=== PATIENT | female | born 1960 | race Caucasian/White ===

== ENCOUNTER 2019-10-18 12:48 | Outpatient (CLI) | payer SELFPAY ==
--- NOTE | 2019-10-18 13:07 | XR_ITS ---
WS: [id number] Right foot, 3 views, 10/18/2019 Clinical Data: PAIN IN R FOOT Comparison: None. Findings: No fractures or dislocations are seen. No bone destruction or erosion is noted. The joint spaces and soft tissues are normal. XR/XR foot RT min 3V* [id number] Impression: Negative right foot.
--- NOTE | 2019-10-18 13:07 | XR_ITS ---
WS: [id number] Left foot, 3 views, 10/18/2019 Clinical Data: PAIN IN L FOOT Comparison: None. Findings: No fractures or dislocations are seen. No bone destruction or erosion is noted. The joint spaces and soft tissues are normal. XR/XR foot LT min 3V* [id number] Impression: Negative left foot.
== END 2019-10-18 12:49 | disposition home or self-care (01) ==
LOC: RAD 12:51
PROVIDERS: PCP Internal Medicine; Visit Provider Internal Medicine
DX: M79.672 Pain in left foot (principal); M79.671 Pain in right foot
CPT/HCPCS: 73630

== ENCOUNTER 2019-10-30 07:33 | Outpatient (CLI) | payer SELFPAY ==
--- NOTE | 2019-10-30 07:38 | US_ITS ---
WS: [id number] ULTRASOUND RENAL TECHNIQUE: Ultrasound examination of both kidneys. CLINICAL INFORMATION: CHRONIC KIDNEY DISEASE COMPARISON: None. FINDINGS: RIGHT: Right kidney is normal in size and appearance. Echogenicity: Normal. Cortical thickness: 1.4 cm; Normal. Hydronephrosis: None. Perinephric fluid: None. Right kidney measures: 9.4 cm x 3.5 cm x 4.0 cm. LEFT: Left kidney is normal in size and appearance. Echogenicity: Normal. Cortical thickness: 1.1 cm; Normal. Hydronephrosis: None. Perinephric fluid: None. Left kidney measures: 9.8 cm x 3.7 cm x 4.3 cm. Normal bladder. Moderate atheromatous plaque in the abdominal aorta. Suggestion of some mobile plaque . Peripheral mural thrombus. US/US renal BI* [id number] IMPRESSION: 1. Both kidneys are normal in appearance. No hydronephrosis. 2. Moderate atheromatous disease abdominal aorta with some mobile plaque. Per ipheral mural thrombus. This can be further evaluated with CTA.
== END 2019-10-30 07:34 | disposition home or self-care (01) ==
LOC: US 07:35
PROVIDERS: PCP Internal Medicine; Visit Provider Internal Medicine
DX: N18.2 Chronic kidney disease, stage 2 (mild) (principal); I70.0 Atherosclerosis of aorta
CPT/HCPCS: 76770

== ENCOUNTER 2019-10-31 08:02 | Outpatient (CLI) | payer SELFPAY ==
--- NOTE | 2019-10-31 08:25 | CT_ITS ---
WS: [id number] CT ABDOMEN NON-CONTRAST PLUS CONTRAST TECHNIQUE: Noncontrast CT of the abdomen and contrast-enhanced CT of the abdomen with coronal and sag ittal reformatted images. CLINICAL INFORMATION: ADRENAL ADENOMA COMPARISON: Ultrasound October 30, 2019 DLP: 2152.[address] scans at [facility] use at least one of these dose optimization techniques: automat ed exposure control; mA and/or kV adjustment per patient size (includes targeted exams where dose is matched to clinical indication); or iterative reconstruction. FINDINGS: Mild diffuse fatty infiltration of the liver. Portal vein and splenic vein are patent. Normal gallbla dder. Normal GE junction. Normal spleen. Lung bases are well aerated. Normal bilateral renal parenchymal enhancement. Small bilateral renal cysts. Small right adrenal srikanth funmilayo measuring 7 mm. Slight thickening left adrenal gland with no well-circumscribed adenoma. No other adrenal lesions. Both ureters are decompressed. No hydronephrosis. No upper abdominal lymphadenopathy. Tiny fat-contai jason umbilical hernia. Mild fatty atrophy of the pancreas. Normal caliber abdominal aorta. No signifi cant calcified aortic atheromatous disease. Mild calcified atheromatous disease left common iliac art basilio. CT/CT abdomen wo/w con [id number] IMPRESSION: 1. Tiny 6 mm right adrenal adenoma. 2. Slight thickening left adrenal gland. No well-circumscribed adenoma. 3. Normal bilateral renal parenchymal enhancement. No hydronephrosis. Small bi lateral renal cysts. 4. Mild diffuse fatty infiltration of the liver. 5. Normal caliber abdominal aorta. No significant calcified aortic atheromatou s disease. Slight calcified atheromatous disease along the left common iliac ar marcelo. 6. Tiny fat-containing umbilical hernia.
[2019-10-31] MEDS: iohexol 300 mg/mL 100 mL Btl IV (08:55)
== END 2019-10-31 08:03 | disposition home or self-care (01) ==
LOC: RADWPI 08:03
PROVIDERS: PCP Internal Medicine; Visit Provider Internal Medicine
DX: D35.00 Benign neoplasm of unspecified adrenal gland (principal); Q61.02 Congenital multiple renal cysts; K76.0 Fatty (change of) liver, not elsewhere classified; K42.9 Umbilical hernia without obstruction or gangrene
CPT/HCPCS: 74170; Q9967

== ENCOUNTER 2019-11-23 14:31 | Outpatient (CLI) | payer SELFPAY ==
--- NOTE | 2019-11-23 14:33 | MM_ITS ---
WS: [id number] BILATERAL DIGITAL SCREENING MAMMOGRAPHY WITH CAD CLINICAL INFORMATION: SCREENING HISTORY: Screening mammogram. No current complaints. COMPARISON: June 22, 2011 TECHNIQUE: Bilateral CC and MLO views. FINDINGS: The breasts are composed of heterogeneous fibroglandular density tissue, which can limit the detectio n of small underlying mass lesions. Lucent centered calcifications. Slightly spiculated 9 mm asymmetr ic density upper outer right breast near the 12:00 position. Recommend spot compression views and ult rasound for further evaluation. This is new since 2010. No suspicious abnormalities left breast. MM/[place] [id number] IMPRESSION: BI-RADS: 0-Incomplete: Need additional imaging evaluation FOLLOW UP: Need Additional Imaging
== END 2019-11-23 14:32 | disposition home or self-care (01) ==
LOC: RADSHAW 14:31
PROVIDERS: PCP Internal Medicine; Visit Provider Internal Medicine
DX: Z12.31 Encounter for screening mammogram for malignant neoplasm of breast (principal)
CPT/HCPCS: 77067

== ENCOUNTER → 2019-12-19 09:05 | Outpatient (BNVA) | payer SELFPAY | PROVIDERS: PCP Internal Medicine; Visit Provider Podiatrist Foot & Ankle Surgery | DX: M25.571 Pain in right ankle and joints of right foot (principal) | CPT/HCPCS: 73610 ==

== ENCOUNTER 2019-12-21 11:11 | Outpatient (CLI) | payer SELFPAY ==
--- NOTE | 2019-12-21 11:58 | MM_ITS ---
WS: [id number] RIGHT DIGITAL MAMMOGRAPHY WITH CAD CLINICAL INFORMATION: RIGHT BREAST LESION COMPARISON: November 23, 2019 TECHNIQUE: 4 views of the right breast were obtained. FINDINGS: The right breast is composed of heterogeneous fibroglandular density tissue, which can limit the dete ction of small underlying mass lesions. Lucent centered calcifications. Vascular calcification. Slightly spiculated 7 mm asymmetric density upper outer right breast not as well-defined on the spot compression views today but appears persistent. Ultrasound is pending. . ULTRASOUND BREAST RIGHT TECHNIQUE: Ultrasound right breast focused area of concern. CLINICAL INFORMATION: RIGHT BREAST LESION COMPARISON: None. FINDINGS: Evidence of fibrocystic change with multiple subcentimeter cysts and dilated ducts. At the 1:00 posit ion is a heterogeneous hypoechoic lesion that is not definitely cystic. Internal echogenicity. Recomm end further evaluation with ultrasound-guided biopsy. This lesion measures approximately 4.9 x 4.0 x 2.9 mm. MM/[place] [id number] IMPRESSION: BI-RADS: 4B-Suspicious: Intermediate FOLLOW UP: US Guided Biopsy Recommended
--- NOTE | 2019-12-21 12:01 | US_ITS ---
WS: [id number] RIGHT DIGITAL MAMMOGRAPHY WITH CAD CLINICAL INFORMATION: RIGHT BREAST LESION COMPARISON: November 23, 2019 TECHNIQUE: 4 views of the right breast were obtained. FINDINGS: The right breast is composed of heterogeneous fibroglandular density tissue, which can limit the dete ction of small underlying mass lesions. Lucent centered calcifications. Vascular calcification. Slightly spiculated 7 mm asymmetric density upper outer right breast not as well-defined on the spot compression views today but appears persistent. Ultrasound is pending. . ULTRASOUND BREAST RIGHT TECHNIQUE: Ultrasound right breast focused area of concern. CLINICAL INFORMATION: RIGHT BREAST LESION COMPARISON: None. FINDINGS: Evidence of fibrocystic change with multiple subcentimeter cysts and dilated ducts. At the 1:00 posit ion is a heterogeneous hypoechoic lesion that is not definitely cystic. Internal echogenicity. Recomm end further evaluation with ultrasound-guided biopsy. This lesion measures approximately 4.9 x 4.0 x 2.9 mm. US/US breast RT limited* [id number] IMPRESSION: BI-RADS: 4B-Suspicious: Intermediate FOLLOW UP: US Guided Biopsy Recommended
== END 2019-12-21 11:12 | disposition home or self-care (01) ==
LOC: RADSHAW 11:11
PROVIDERS: PCP Internal Medicine; Visit Provider Internal Medicine
DX: R92.8 Other abnormal and inconclusive findings on diagnostic imaging of breast (principal); N63.10 Unspecified lump in the right breast, unspecified quadrant
CPT/HCPCS: 76642; 77065

== ENCOUNTER 2020-01-01 11:45 | Outpatient (CLI) | payer SELFPAY ==
--- NOTE | 2020-01-01 12:21 | US_ITS ---
WS: [id number] ULTRASOUND-GUIDED RIGHT BREAST BIOPSY HISTORY: ABNORMAL MAMMOGRAM COMPARISON: 12/21/2019 Procedure, risks and complications are explained to the patient. Medications are reviewed. Consent is obtained. The mass in the RIGHT breast is localized with ultrasound. Skin is cleansed with ChloraPrep and anest hetized with 1% buffered lidocaine. Small dermatome is made. Under sterile conditions mass is biopsie d with a 14-gauge Achieve needle. Multiple core biopsies are performed. Material placed in formalin a nd sent to pathology for review. No complications encountered. Breast tissue marker (Bard ultrasound enhanced ribbon): Single. Patient left the radiology suite with no complications. Patient is instructed to return [place] [facility] [place] [facility] with any concerns. 1. Uncomplicated core needle biopsy RIGHT breast, 1:00. US/[place] [id number] IMPRESSION: PATHOLOGY: Benign breast parenchyma with fibrocystic changes. Cystic and papill roxana apocrine metaplasia and focal columnar cell change. No atypia or malignancy . RECOMMENDATION: Return to annual screening mammography. Mammography and patholo gical findings are concordant.
== END 2020-01-01 11:46 | disposition home or self-care (01) ==
LOC: RAD 12:12
PROVIDERS: PCP Internal Medicine; Visit Provider Internal Medicine
DX: R92.8 Other abnormal and inconclusive findings on diagnostic imaging of breast (principal); N60.81 Other benign mammary dysplasias of right breast
CPT/HCPCS: 19083; 88305

== ENCOUNTER 2021-03-24 08:37 | Emergency (ER) | payer MEDICAID, SELFPAY ==
[2021-03-24 08:47] VITALS: BP 143/85; PULSE 74; RESP 15; TEMP 36.6; O2SAT 97; BMI 24.2
--- NOTE | 2021-03-24 08:59 | CT_ITS ---
WS: [id number] CT ABDOMEN AND PELVIS WITH AND WITHOUT CONTRAST HISTORY: pain, hx of adrenal cyst TECHNIQUE: Unenhanced 5 mm axial imaging first performed through the abdomen. Post contrast imaging t hrough the abdomen and pelvis. Oral contrast has not been provided. Sagittal and coronal reformats a re submitted. All CT scans at [facility] use at least one of these dose optimization tech niques: automated exposure control; mA and/or kV adjustment per patient size (includes targeted exams where dose is matched to clinical indication); or iterative reconstruction. CONTRAST: Omnipaque 300; 95 mL IV. DLP: 4417.65 mGy.cm COMPARISON: 10/31/2019 Dependent changes at the lung bases. Subsolid nodule at the RIGHT lung base is unchanged since 020. Mild enlargement of the heart. Small hiatal hernia. Gallbladder is very slightly hydropic with mild wall thickening. There is a stone at the neck of the gallbladder which may be entrapped. This calcification measures 2 cm in diameter. There is a moderate amount of inflammation and wall thickening surrounding the gallbladder. There is some very mild hype remia in the liver adjacent to the gallbladder fundus. No bile duct dilatation. Normal portal vein. Normal pancreas. 6 mm nodule in the RIGHT adrenal gland is probably an adenoma and stable. No adrena l mass. Hypodensities in each kidney. No solid mass. These hypodensities are too small to characteriz e. There is no obstruction. Pancreas is normal. Normal aorta. No free fluid or adenopathy. The appendix is normal. No GI tract obstruction. There are numerous dive rticula in the sigmoid colon without inflammation. No destructive osseous process. Mild disc space narrowing at L5-S1. CT/CT abdomen pelvis wo/w [id number] IMPRESSION: 1. Acute cholecystitis with mild gallbladder hydrops and pericholecystic fluid and adjacent hyperemia in the liver. 2 cm calcification entrapped at the gallb ladder neck. 2. No bile duct dilatation.
--- NOTE | 2021-03-24 09:00 | W.ED.GENADLT ---
HPI - General Adult General: Chief complaint: General Medical Stated complaint: LEFT FLANK PAIN Time Seen by Provider: 03/24/21 08:47 History of Present Illness: HPI narrative: Patient has had left flank pain for several days unrelenting. Patient says since she had a monitor and a vaccine a while back that she swelled up and the kidneys bothered her some. She does not know whether she has had any hematuria. She has had some nausea. Not any difficulty urinating. Patient states that she believes it could also be her cyst she was diagnosed with a year ago that was found 100 adrenal gland left side. Denies any other health problems Onset (ago): day(s) Location: back Severity: moderate Severity scale (1-10): 4 Quality: other (Patient will not describe the pain said it just hurts) Pain Consistency: constant Relieving factors: none Exacerbating factors: other (Walking) Associated symptoms: Reports nausea; Deny chest pain, dyspnea, headache(s) or rash Review of Systems Const: Denies: fever(s), chills or body aches Eyes: Denies: change in vision or blurry vision ENMT: Denies: throat pain or nasal congestion Card: Denies: chest pain or dyspnea on exertion Resp: Denies: dyspnea, productive cough or non-productive cough GI: Reports: nausea : Reports: flank pain Musc: Denies: extremity pain Skin/Breast: Denies: rash Neuro: Denies: headache(s) Psych: Denies: anxiety or depression Hector/Lymph: Denies: easy bruising PFSH ED PFSH: Medical History (Updated 12/23/19 @ 14:49 by Erik Grewal DPM) Diabetes mellitus High cholesterol History of skull fracture Hypertension Hypothyroid Surgical History (Updated 12/23/19 @ 14:49 by Erik Grewal DPM) History of hysterectomy Status post removal of thyroid nodule Family History (Updated 12/19/19 @ 09:17 by Berna Montelongo LPN) Other Dementia Denies family history of Cancer Social History (Updated 12/19/19 @ 09:19 by Berna Montelongo LPN) Smoking and tobacco status: never smoked Alcohol intake: never Household members: other Details: parents Current occupational status: unemployed Physical Exam Const: COMMON NORMALS: no acute distress, average body habitus and patient oriented x3 HENMT: COMMON NORMALS: normocephalic HEAD & SCALP: normal to inspection and normocephalic FACE & SINUS: normal facial exam Eye: COMMON NORMALS: conjunctivae normal GENERAL EYE: appearance normal, both eyes and all related structures CONJUNCTIVA: Yes conjunctivae normal Neck/C-Spine: COMMON NORMALS: no JVD Chest: COMMONS NORMALS: normal inspection of the chest Resp: COMMON NORMALS: normal respiratory effort and clear to auscultation bilaterally AUSCULTATION: clear to auscultation bilaterally Cardio: COMMON NORMALS: no JVD, regular rate and regular rhythm RATE: regular rate RHYTHM: regular rhythm GI: COMMON NORMALS: Normal to inspection, nondistended, normoactive bowel sounds present : BLADDER/KIDNEY EXAM: Yes CVA tenderness on the left Back/Pelvis: GENERAL BACK: Yes CVA tenderness Extremity: COMMON NORMALS: normal to inspection and full ROM Neuro: COMMON NORMALS: patient oriented x3 Course Vital Signs: Vital signs: Vital Signs Temperature 97.9 F 03/24/21 08:47 Pulse Rate 63 03/24/21 12:00 Respiratory Rate 15 03/24/21 12:00 Blood Pressure 125/96 03/24/21 12:00 Pulse Oximetry 98 03/24/21 12:00 MDM - General Adult MDM Narrative: Medical decision making narrative: I shared labs and radiology report Dr. Platt. Dr. Platt recommends patient follow-up in clinic because patient is not having acute symptoms presently has no tenderness in her abdomen. I discussed Dr. Platt conclusion with patient patient declines follow-up with surgeon says she has had gallbladder problems before and she did not want to anything about it. Patient does have mild UTI based on symptoms and UA report patient follow-up primary care provider repeat urine and clinical assessment 5 to 7 days. Lab Data: Labs: Lab Results 03/24/21 03/24/21 03/24/21 Range/Units 09:43 10:35 10:35 WBC 13.1 H (4.0-10.0) 10^3/ uL RBC 4.36 (4.1-5.3) 10^6/u L Hgb 13.2 (11.5-15.3) g/dL Hct 42.8 (37.0-47.0) % MCV 98.2 (81-99) fL MCH 30.3 (28.0-34.0) pg MCHC 30.8 (30.0-36.0) g/dL RDW 12.7 (12.1-15.1) % Plt Count 306 (130-400) 10^3/c mm MPV 10.4 (7.4-10.4) fL Neut % (Auto) 82.9 % Lymph % (Auto) 10.9 % [place] % (Auto) 5.1 % Eos % (Auto) 0.5 % Baso % (Auto) 0.3 % Neut # (Auto) 10.81 H (1.8-7.7) 10^3/u L Lymph # (Auto) 1.4 (0.8-4.8) 10^3/u L [place] # (Auto) 0.7 (0.2-0.9) 10^3/u L Eos # (Auto) 0.1 (0.0-0.8) 10^3/u L Baso # (Auto) 0.0 (0.0-0.1) 10^3/u L Nucleated RBC % (a uto) 0 % Nucleated RBCs # 0.0 /100WBC Sodium 139 (136-145) mmol/L Potassium 4.4 (3.5-5.1) mmol/L Chloride 104 (98-107) mmol/L Carbon Dioxide 24 (22-29) mmol/L Anion Gap 15.4 (5-19) BUN 13 (8-23) mg/dL Creatinine 0.9 (0.5-0.9) mg/dL GFR Calculation 63.4 L (90-130) mL/min Glucose 130 H (65-115) mg/dL Calculated Osmolal ity 290 (285-295) mOsm/k g Calcium 10.4 (8.5-10.5) mg/dL Total Bilirubin 0.3 (0.15-1.2) mg/dL AST 11 (0-32) U/L ALT 10 (0-33) U/L Alkaline Phosphata se 89 (35-105) IU/L Total Protein 6.5 L (6.6-8.7) g/dL Albumin 4.0 (3.5-5.2) g/dL Globulin 2.5 (1.3-4.6) g/dL Lipase 27 (13-60) U/L Urine Color Yellow (Yellow) Urine Appearance Clear (CLEAR) Urine pH 5 (5-7) Ur Specific Gravit y 1.020 (1.005-1.030) Urine Protein Neg (Negative) Urine Glucose (UA) Norm (Normal) Urine Ketones Negative (Negative) Urine Blood Neg (Negative) Urine Nitrate Negative (Negative) Urine Bilirubin Neg (Negative) Urine Urobilinogen Norm (Negative) mg/dL Ur Leukocyte Kathy ase Trace H (Negative) Urine RBC None (0-2) /hpf Urine WBC 5-10 H (0-5) /hpf Ur Squamous Epith Cells 0-4 H (0-5) /hpf Amorphous Sediment Not Reportable Urine Bacteria 1+ H (NONE) /hpf Discharge Plan Discharge Prescriptions: No Action atenolol 25 mg tablet 25 mg PO DAILY RF: 0 lisinopril 5 mg tablet 5 mg PO DAILY RF: 0 levothyroxine 25 mcg capsule 25 mcg PO DAILY RF: 0 spironolactone 25 mg tablet PO RF: 0 metformin 500 mg tablet 500 mg PO DAILY RF: 0 Coding Level of Care Code ED Resaw Machine Operator for Chg Fwd Exam Comprehensive
[2021-03-24] MEDS: sodium chloride 0.9% 1,000 ML 999 ML IV (09:16)
[2021-03-24] MEDS: ondansetron 2 mg/ML SDV 2 mL 4 MG IVP (09:18)
[2021-03-24] MEDS: morphine 4 mg/mL SDV 1 mL IVP (09:18)
--- NOTE | 2021-03-24 10:11 | PC.NURSE ---
multiple attempts to get blood draw from pt. 2 nurses tried without success. lab was contacted to come attempt to draw pt at 0930. lab in room now
[2021-03-24 10:15] LABS: Add Urine Microscopic? YES; Bilirubin Urine Neg (Negative); Blood Urine Neg (Negative); Glucose Urine UA Norm (Normal); Ketones Urine Negative (Negative); Leukocyte Esterase Urine Trace (Negative); Nitrate Urine Negative (Negative); Protein Urine Neg (Negative); Urine Appearance Clear (CLEAR); Urine Color Yellow (Yellow); Urobilinogen Urine Norm (Negative); pH Urine 5 (5-7)
[2021-03-24 10:20] LABS: Bacteria Urine 1+ /hpf; Squamous Epithelial Cell Urine 0-4 /hpf (0-5)
[2021-03-24 10:21] LABS: Add Urine Culture? No
[2021-03-24 10:43] LABS: Basophils % 0.3 %; Eosinophils # 0.1 10^3/uL (0.0-0.8); Eosinophils % 0.5 %; Hematocrit 42.8 % (37.0-47.0); Hemoglobin 13.2 g/dL (11.5-15.3); Lymphocytes # 1.4 10^3/uL (0.8-4.8); Lymphocytes % 10.9 %; Mean Corpuscular HGB Conc 30.8 g/dL (30.0-36.0); Mean Corpuscular Hemoglobin 30.3 pg (28.0-34.0); Mean Corpuscular Volume 98.2 fL (81-99); Mean Platelet Volume 10.4 fL (7.4-10.4); Monocytes # 0.7 10^3/uL (0.2-0.9); Monocytes % 5.1 %; Neutrophils # 10.81 10^3/uL (1.8-7.7); Neutrophils % 82.9 %; Nucleated Red Blood Cells % 0 %; Platelet Count 306 10^3/cmm (130-400); Red Blood Count 4.36 10^6/uL (4.1-5.3); Red Cell Distribution Width 12.7 % (12.1-15.1); White Blood Count 13.1 10^3/uL (4.0-10.0)
[2021-03-24 11:01] LABS: Alanine Aminotransferase 10 U/L (0-33); Alkaline Phosphatase 89 IU/L (35-105); Anion Gap 15.4 (5-19); Aspartate Amino Transferase 11 U/L (0-32); Blood Urea Nitrogen 13 mg/dL (8-23); Calcium 10.4 mg/dL (8.5-10.5); Carbon Dioxide 24 mmol/L (22-29); Chloride 104 mmol/L (98-107); Globulin 2.5 g/dL (1.3-4.6); Glomerular Filtration Rate 63.4 mL/min (90-130); Glucose 130 mg/dL (65-115); Lipase 27 U/L (13-60); Osmolality Calculated 290 mOsm/kg (285-295); Potassium 4.4 mmol/L (3.5-5.1); Sodium 139 mmol/L (136-145); Total Bilirubin 0.3 mg/dL (0.15-1.2); Total Protein 6.5 g/dL (6.6-8.7)
[2021-03-24] MEDS: iohexol 300 mg/mL 100 mL Btl IV (11:50)
[2021-03-24] MEDS: ketorolac 30 mg/mL INJ IVP (11:56)
[2021-03-24] MEDS: cefTRIAXone 1,000 MG in sodium chloride 0.9% (plus) 50 ML 100 MG IV (11:57)
[2021-03-24 11:59] VITALS: PULSE 63; RESP 15; O2SAT 93
[2021-03-24 12:00] VITALS: BP 125/96; PULSE 63; RESP 15; O2SAT 98
[2021-03-24 12:30] VITALS: BP 124/76
[2021-03-24 12:31] VITALS: BP 124/76
== END 2021-03-24 12:35 | disposition home or self-care (01) ==
PROVIDERS: Emergency Provider Nurse Practitioner Family; PCP Internal Medicine
DX: R10.9 Unspecified abdominal pain (principal); E11.9 Type 2 diabetes mellitus without complications; Z79.84 Long term (current) use of oral hypoglycemic drugs; I10 Essential (primary) hypertension
CPT/HCPCS: 36415; 74178; 80053; 81001; 83690; 85025; 96365; 96375; 99284; J0696; J1885; J2270; J2405; J7030; Q9967

== ENCOUNTER 2021-08-06 13:01 | Outpatient (CLI) | payer MEDICAID, OTHER, SELFPAY ==
--- NOTE | 2021-08-06 13:06 | XR_ITS ---
WS: [id number] Exam: XR shoulder RT min 2V* [id number] Date/Time of Exam: 08/06/2021 1:09 PM Reason For Exam: PAIN IN RIGHT SHOULDER No fracture or dislocation. Normal soft tissues. Mild AC joint DJD. Osteopenia. XR/XR shoulder RT min 2V* [id number] IMPRESSION: 1. No fracture or dislocation. 2. Minimal DJD and osteopenia.
== END 2021-08-06 13:02 | disposition home or self-care (01) ==
LOC: RAD 13:04
PROVIDERS: PCP Internal Medicine; Visit Provider Nurse Practitioner Family
DX: M85.811 Other specified disorders of bone density and structure, right shoulder (principal); M19.011 Primary osteoarthritis, right shoulder
CPT/HCPCS: 73030

== ENCOUNTER 2022-04-07 13:24 | Outpatient (CLI) | payer MEDICAID, SELFPAY ==
--- NOTE | 2022-04-07 13:47 | MM_ITS ---
WS: [id number] BILATERAL 3D TOMOSYNTHESIS DIGITAL SCREENING MAMMOGRAPHY WITH CAD CLINICAL INFORMATION: SCREENING HISTORY: Screening mammogram. No current complaints. COMPARISON: December 21, 2019, 2010, 2007. TECHNIQUE: Bilateral CC and MLO views. FINDINGS: The breasts are composed of heterogeneous fibroglandular density tissue, which can limit the detectio n of small underlying mass lesions. Punctate and lucent centered calcifications. Biopsy marker upper outer RIGHT breast with stable asymmetry at the 12:00-100 position. Dense 8 mm spiculated asymmetry along the posterior nipple line on the MLO view RIGHT breast appears new or progressed compared to November 23, 2019. Recommend further evaluation with RIGHT diagnostic mamm ography spot compression views and ultrasound. This is only well seen on the MLO view. LEFT breast is unchanged and unremarkable. MM/[place] [id number] IMPRESSION: BI-RADS: 0-Incomplete: Need additional imaging evaluation FOLLOW UP: Need Additional Imaging Recommend RIGHT breast spot compression views and ultrasound in further evaluat ion.
--- NOTE | 2022-04-07 13:47 | XR_ITS ---
WS: [id number] SCREENING DEXA SCAN REPUCOM CLINICAL INFORMATION: ASYMPTOMATIC POSTMENOPAUSAL COMPARISON: None. FINDINGS: The L1-L4 bone mineral density measures 0.996. This corresponds to a T score score of -1.7 and Z scor e of -0.6. Left femoral neck bone mineral density measures 0.830 g/cm2. This corresponds to a T score of -1.4 an d Z score of -0.6. Right femoral neck bone mineral density measures 0.836 g/cm2. This corresponds to a T score -1.4of an d Z score of -0.5. Mean femoral neck bone mineral density measures 0.833 g/cm2. This corresponds to a T score of -1.4 an d Z score of -0.5. XR/XR DEXA axial skeleton* [id number] IMPRESSION: Osteopenia in the lumbar spine. Osteopenia in the femoral necks. Patient's FRAX calculated 10 year probability for major osteoporotic fracture i s 25.2 % and osteoporotic hip fracture is 3.6%.
== END 2022-04-07 13:25 | disposition home or self-care (01) ==
LOC: RAD 13:24
PROVIDERS: PCP Internal Medicine; Visit Provider Internal Medicine
DX: Z12.31 Encounter for screening mammogram for malignant neoplasm of breast (principal); Z78.0 Asymptomatic menopausal state; M85.89 Other specified disorders of bone density and structure, multiple sites
CPT/HCPCS: 77063; 77067; 77080

== ENCOUNTER 2022-05-16 13:23 | Inpatient (IN) | payer MEDICAID, SELFPAY ==
[2022-05-16] VITALS (10 sets, daily range): BP systolic 125–147; BP diastolic 83–90; PULSE 54–76; RESP 11–19; TEMP 36.7; O2SAT 95–96; BMI 26.6
--- NOTE | 2022-05-16 14:01 | USR_ITS ---
PROCEDURE INFORMATION: Exam: US Abdomen, Limited; Right Upper Quadrant Exam date and time: 05/16/2022 2:17 PM Age: 61 years old Clinical indication: Abdominal pain; Acute; Patient HX: Known gb stone. PT now very ill and in pain; Additional info: Ruq pain TECHNIQUE: Imaging protocol: Real time ultrasound of the abdomen with image documentation. Limited exam focused on the right upper quadrant. COMPARISON: CT abdomen pelvis wo/w [id number] 03/24/2021 11:34 AM FINDINGS: Liver: Normal. No masses. Gallbladder: Distended with a length of 9 cm. There is gallbladder sludge and stones. There is a 2 cm stone in the gallbladder neck. There is gallbladder wall thickening with associated edema. Biliary ducts: Normal. No stones. No dilation. Pancreas: Visualized pancreas is unremarkable. Right kidney: Normal. No mass. No hydronephrosis. US/US abdomen limited [id number] IMPRESSION: Findings are consistent with cholecystitis.Clinical correlation is advised.
--- NOTE | 2022-05-16 14:01 | ECG_ITS ---
[facility] Test Date: 2022-05-16 Pat Name: Lynn Kerr Department: Room: Gender: Female Manager Program: : [id number] Requested By: Nicholas Pham Order Number: [id number] Esau MD: Harsha Fuchs M.D. Measurements Intervals Adah Rate: 57 P: 38 CO: 165 QRS: -27 QRSD: 91 T: 67 QT: 419 QTc: 410 Interpretive Statements SINUS BRADYCARDIA LOW QRS VOLTAGE IN PRECORDIAL LEADS [QRS DEFLECTION < 1.0 mV IN CHEST LEADS] Possible INFERIOR MYOCARDIAL INFARCTION , OF INDETERMINATE AGE [40+ ms Q WAVE AND/OR ST/T ABNORMALITY IN II/aVF] Possible ANTEROSEPTAL MYOCARDIAL INFARCTION , PROBABLY OLD [40+ ms Q WAVE IN V1-V4] Compared to ECG 06/28/2019 15:27:16 Sinus rhythm no longer present Ventricular premature complex(es) no longer present T-wave abnormality no longer present Possible ischemia no longer present Myocardial infarct finding still present Electronically Signed On 05-16-2022 18:13:47 CDT by Harsha Fuchs M.D. [id number]
--- NOTE | 2022-05-16 14:03 | ED_ITS ---
HPI - Abdominal Pain General: Chief Complaint: Abdominal Pain Stated Complaint: Abd pain N/V Time Seen by Provider: 05/16/22 13:55 History of Present Illness: 61-year-old presents due to upper abdominal pain. States it has been ongoing for 6 days. Worse in the right upper quadrant. Denies any flank pain. Did report some nausea and nonbloody nonbilious emesis and diarrhea. Denies any dysuria. Denies pelvic discharge chest pain or shortness of breath. Review of Systems Narrative: - CONSTITUTIONAL: Denies weight loss, fever and chills. - HEENT: Denies changes in vision and hearing. - RESPIRATORY: Denies SOB and cough. - CV: Denies palpitations and CP. - GI: As above - : Denies dysuria and urinary frequency. - MSK: Denies myalgia and joint pain. - SKIN: Denies rash and pruritus. - NEUROLOGICAL: Denies headache, weakness, numbness and syncope. - PSYCHIATRIC: Denies suicidal ideation [facility] ED PFSH: Medical History (Updated 04/01/21 @ 00:01 by ) Diabetes mellitus High cholesterol History of skull fracture Hypertension Hypothyroid Surgical History (Updated 12/23/19 @ 14:49 by Erik Grewal DPM) History of hysterectomy Status post removal of thyroid nodule Family History (Updated 12/19/19 @ 09:17 by Berna Montelongo LPN) Other Dementia Denies family history of Cancer Social History (Updated 12/19/19 @ 09:19 by Berna Montelongo LPN) Smoking and tobacco status: never smoked Alcohol intake: never Household members: other Details: parents Current occupational status: unemployed Physical Exam Narrative: EXAM NARRATIVE: - GENERAL: Alert and oriented x 3. No acute distress. Well-nourished. - EYES: EOMI. Anicteric. - HENT: Atraumatic, no C-spine tenderness. Moist mucous membranes. No scleral icterus. No cervical lymphadenopathy. - LUNGS: Clear to auscultation bilaterally. No accessory muscle use. Equal lung sounds bilaterally. No respiratory distress. - CARDIOVASCULAR: Regular rate and rhythm. No murmur. No JVD. - ABDOMEN: Soft, mild tenderness in right upper quadrant, non-distended. Negat tray CVA tenderness bilaterally, no rebound or guarding, negative Toribio sign. No palpable masses. - EXTREMITIES: No edema. Non-tender. - SKIN: No rashes or lesions. Warm. - NEUROLOGIC: No meningismus or focal neurological deficits. CN II-XII grossly intact. - PSYCHIATRIC: Cooperative. Appropriate mood and affect. Course Vital Signs: Vital signs: Vital Signs Pulse Rate 61 05/16/22 15:04 Respiratory Rate 16 05/16/22 15:04 Blood Pressure 125/83 05/16/22 15:04 Pulse Oximetry 96 05/16/22 15:04 Oxygen Delivery Me thod 05/16/22 13:30 MDM - Abdominal Pain Medical Decision Making 61-year-old presents due to right upper quadrant pain. Ultrasound concerning for cholecystitis. There is white count elevation of 15. Zosyn started. EKG and troponin does not reveal any acute ischemic change. Remainder of lab work and imaging reviewed. Discussed with surgery and they agreed patient would benefit from admission. Patient admitted in stable condition. Further evaluation management per surgery team. Lab Data : 05/16/22 14:17 05/16/22 14:17 Labs/Radiology: Radiology Impressions Abdomen Ultrasound 05/16/22 14:01 IMPRESSION: Findings are consistent with cholecystitis.Clinical correlation is advised. Laboratory Results WBC 15.5 10^3/uL (4.0-10.0) H 05/16/22 14:17 RBC 4.70 10^6/uL (4.1-5.3) 05/16/22 14:17 Hgb 14.4 g/dL (11.5-15.3) 05/16/22 14:17 Hct 45.7 % (37.0-47.0) 05/16/22 14:17 MCV 97.2 fl (81-99) 05/16/22 14:17 MCH 30.6 pg (28.0-34.0) 05/16/22 14:17 MCHC 31.5 g/dL (30.0-36.0) 05/16/22 14:17 RDW 12.2 % (12.1-15.1) 05/16/22 14:17 Plt Count 324 10^3/cmm (130-400) 05/16/22 14:17 MPV 10.1 fL (7.4-10.4) 05/16/22 14:17 Neut % (Auto) 84.9 % 05/16/22 14:17 Lymph % (Auto) 9.4 % 05/16/22 14:17 [place] % (Auto) 5.0 % 05/16/22 14:17 Eos % (Auto) 0.1 % 05/16/22 14:17 Baso % (Auto) 0.2 % 05/16/22 14:17 Neut # (Auto) 13.16 10^3/uL (1.8-7.7) H 05/16/22 14:17 Lymph # (Auto) 1.5 10^3/uL (0.8-4.8) 05/16/22 14:17 [place] # (Auto) 0.8 10^3/uL (0.2-0.9) 05/16/22 14:17 Eos # (Auto) 0.0 10^3/uL (0.0-0.8) 05/16/22 14:17 Baso # (Auto) 0.0 10^3/uL (0.0-0.1) 05/16/22 14:17 Nucleated RBC % (auto) 0 % 05/16/22 14:17 Nucleated RBCs # 0.0 /100WBC 05/16/22 14:17 Sodium 135 mmol/L (136-145) L 05/16/22 14:17 Potassium 4.2 mmol/L (3.5-5.1) 05/16/22 14:17 Chloride 98 mmol/L (98-107) 05/16/22 14:17 Carbon Dioxide 22 mmol/L (22-29) 05/16/22 14:17 Anion Gap 19.2 (5-19) H 05/16/22 14:17 BUN 16 mg/dL (8-23) 05/16/22 14:17 Creatinine 1.0 mg/dL (0.5-0.9) H 05/16/22 14:17 GFR Calculation 56.0 mL/min (90-130) L 05/16/22 14:17 Glucose 131 mg/dL (65-115) H 05/16/22 14:17 Calculated Osmolality 283 mOsm/kg (285-295) L 05/16/22 14:17 Lactate 1.5 mmol/L (0.5-2.2) 05/16/22 14:17 Calcium 9.1 mg/dL (8.5-10.5) 05/16/22 14:17 Total Bilirubin 0.5 mg/dL (0.15-1.2) 05/16/22 14:17 AST 12 U/L (0-32) 05/16/22 14:17 ALT 11 U/L (0-33) 05/16/22 14:17 Alkaline Phosphatase 97 U/L (35-105) 05/16/22 14:17 Troponin T Baseline 6 ng/L (0-10) 05/16/22 14:17 Total Protein 7.4 g/dL (6.6-8.7) 05/16/22 14:17 Albumin 4.3 g/dL (3.5-5.2) 05/16/22 14:17 Globulin 3.1 g/dL (1.3-4.6) 05/16/22 14:17 Lipase 16 U/L (13-60) 05/16/22 14:17 EKG Data EKG 1: Other EKG comments: Sinus bradycardia, rate of 57, sub [address] depressions in 1 and aVL, no reciprocal change. Otherwise no sign of acute ischemia or other acute abnormal ity. 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
[2022-05-16 14:34] LABS: Basophils % 0.2 %; Eosinophils % 0.1 %; Hematocrit 45.7 % (37.0-47.0); Hemoglobin 14.4 g/dL (11.5-15.3); Lymphocytes # 1.5 10^3/uL (0.8-4.8); Lymphocytes % 9.4 %; Mean Corpuscular HGB Conc 31.5 g/dL (30.0-36.0); Mean Corpuscular Hemoglobin 30.6 pg (28.0-34.0); Mean Corpuscular Volume 97.2 fl (81-99); Mean Platelet Volume 10.1 fL (7.4-10.4); Monocytes # 0.8 10^3/uL (0.2-0.9); Neutrophils # 13.16 10^3/uL (1.8-7.7); Neutrophils % 84.9 %; Nucleated Red Blood Cells % 0 %; Platelet Count 324 10^3/cmm (130-400); Red Cell Distribution Width 12.2 % (12.1-15.1); White Blood Count 15.5 10^3/uL (4.0-10.0)
[2022-05-16 14:53] LABS: Troponin(5th) Baseline 6 ng/L (0-10)
[2022-05-16 14:56] LABS: Alanine Aminotransferase 11 U/L (0-33); Albumin Level 4.3 g/dL (3.5-5.2); Alkaline Phosphatase 97 U/L (35-105); Anion Gap 19.2 (5-19); Aspartate Amino Transferase 12 U/L (0-32); Blood Urea Nitrogen 16 mg/dL (8-23); Calcium 9.1 mg/dL (8.5-10.5); Carbon Dioxide 22 mmol/L (22-29); Chloride 98 mmol/L (98-107); Globulin 3.1 g/dL (1.3-4.6); Glucose 131 mg/dL (65-115); Lipase 16 U/L (13-60); Osmolality Calculated 283 mOsm/kg (285-295); Potassium 4.2 mmol/L (3.5-5.1); Sodium 135 mmol/L (136-145); Total Bilirubin 0.5 mg/dL (0.15-1.2); Total Protein 7.4 g/dL (6.6-8.7)
[2022-05-16 14:57] LABS: Lactate (Lactic Acid level) 1.5 mmol/L (0.5-2.2)
[2022-05-16] MEDS: ondansetron 2 mg/ML SDV 2 mL 4 MG IVP (14:58)
[2022-05-16] MEDS: morphine 4 mg/mL SDV 1 mL IVP (14:58)
[2022-05-16] MEDS: sodium chloride 0.9% 1,000 ML 999 ML IV (14:59)
--- NOTE | 2022-05-16 15:02 | PC.NURSE ---
PT EDUCATED THAT SHE SHOULD NOT DRIVE 8 HOURS AFTER HAVING MORPHINE ADM SHE STATED THAT SHE COULD GET HER DAD TO DRIVE HER HOME.
--- NOTE | 2022-05-16 15:04 | PC.NURSE ---
PT PLACED ON CONTINUOS SPO2, NIBP, AND CM.
[2022-05-16] MEDS: piperacillin-tazobactam 3.375 GM in sodium chloride 0.9% (plus) 50 ML IV (16:05)
--- NOTE | 2022-05-16 16:34 | PM.CONSULT ---
Providers/Reason For Consult Consulting Physician/Specialty*: Dr. Camacho/internal medicine Reason for Consult*: Medical comorbidities Requesting Physician: ER physician Attending Physician: Surgeon Primary Care Provider: Rebecca Forrest MD History of Present Illness History of Present Illness Lynn Kerr is a 61 year old female with past medical history of hypothyroidism, hypertension, hyperlipidemia, type 2 diabetes mellitus on oral metformin. She presents to the hospital today because of right upper quadrant abdominal pain which is been going on for last 4 days along with nausea. States she has had multiple episodes of similar pain in the past. Denies any diarrhea, fever. Pain is sharp, constant nonradiating. Review of Systems General: Reports: 10 or more systems reviewed and unremarkable except in HPI and below Const: Denies: fever(s), chills, body aches, change in appetite, change in weight, malaise, night sweats, diaphoresis, change in sleep pattern, daytime sleepiness or snoring Eyes: Denies: change in vision, blurry vision, photophobia, eye discomfort or eye discharge ENMT: Denies: throat pain, enlarged tonsils, hoarseness, mouth pain, oral sores, dry mouth, tinnitus, nasal congestion or post nasal drip Card: Denies: chest pain, palpitations, irregular heart rhythm, edema, swelling of feet/ankles, lightheadedness, syncope, pre-syncope, dyspnea on exertion, orthopnea, leg pain with exertion or acrocyanosis Resp: Denies: dyspnea, productive cough, non-productive cough, wheezing, stridor, pain on inspiration, change in phlegm color, hemoptysis or chest congestion GI: Denies: abdominal pain, nausea, vomiting, hematemesis, coffee ground emesis, dysphagia, heartburn, diarrhea, constipation, bloating, GI cramping, change in bowel habits, pain on defecation, hematochezia or melena : Denies: flank pain, dysuria, urinary frequency, urinary urgency, urinary hesitancy, nocturia or hematuria Musc: Denies: neck pain, back pain, extremity pain, joint pain, joint swelling, joint redness, joint stiffness or limited range of motion Neuro: Denies: headache(s), numbness in extremities, weakness in extremities, sensory changes, lack of coordination, difficulty walking, frequent falls, dizziness, vertigo, confusion, Slurred speech present, difficulty communicating thoughts or seizure-like activity Psych: Denies: anxiety, depression, mood swings, panic attacks, hopelessness or irritability Endo: Denies: polyuria, polydipsia, tired all the time, cold intolerance, excessive sweating, flushing or heat intolerance Hector/Lymph: Denies: easy bruising or easy bleeding All/Imm: Denies: tongue swelling, facial swelling or acute wheezing Medications/Allergies Home Medications Medication Instructions Recorded Confirmed Last Taken Type lisinopril 5 mg tablet 5 mg PO DAILY 12/19/19 05/16/22 05/16/22 History metformin 500 mg tablet 500 mg PO DAILY 12/19/19 05/16/22 05/16/22 History spironolactone 25 mg tablet 50 mg PO BID 12/19/19 05/16/22 05/16/22 History alendronate 70 mg tablet 70 mg PO Q7D 05/16/22 05/16/22 Unknown History amitriptyline 50 mg tablet 50 mg PO BEDTIME 05/16/22 05/16/22 05/15/22 History atenolol 50 mg tablet 50 mg PO BID 05/16/22 05/16/22 05/16/22 History levothyroxine 88 mcg tablet 88 mcg PO DAILY 05/16/22 05/16/22 05/16/22 History (Euthyrox) ondansetron 8 mg disintegrating 8 mg PO Q8H PRN Nausea 05/16/22 05/16/22 Unknown History tablet permethrin 5 % topical cream 1 applic topical . DIRECTED 05/16/22 05/16/22 05/15/22 History Allergies Allergy/AdvReac Type Severity Reaction Status Date / Time No Known Allergies Allergy Verified 12/19/19 09:15 PFSH Acute PFSH: Medical History Diabetes mellitus High cholesterol History of skull fracture Hypertension Hypothyroid Surgical History History of hysterectomy Status post removal of thyroid nodule Family History Other Dementia Denies family history of Cancer Social History Smoking and tobacco status: never smoked Alcohol intake: never Household members: other Details: parents Current occupational status: unemployed Vitals/I&O/Wt Last Vital Signs Pulse 61 05/16/22 15:04 Resp 16 05/16/22 15:04 BP 125/83 05/16/22 15:04 Pulse Ox 96 05/16/22 15:04 O2 Del Method 05/16/22 13:30 Weight last 48 hrs Weight 72.575 kg Physical Exam Narrative: General: No acute distress, AO x3 HEENT: PERRLA, pupils bilaterally equal and reactive Chest: Normal vesicular breath sounds, no added sounds, equal good air entry bilaterally CVS: S1-S2 regular, no murmurs, no tachycardia, no gallops, no rubs Abdomen: Soft, tender in right upper quadrant, negative Toribio's, no organomegaly, bowel sounds present Neuro: No focal deficits, no facial deformity, AO x3, power 5/5 in all limbs Data : 05/17/22 08:49 05/16/22 14:17 Micro: Microbiology 05/16/22 15:47 Blood Culture - Preliminary Blood SPECIMEN COLLECTED 05/16/22 15:47 Blood Culture - Preliminary Blood SPECIMEN COLLECTED A&P Assessment and plan (1) Acute cholecystitis: After surgical team. For now start on Zosyn. Check blood culture, MRSA swab, procalcitonin NPO. NS at 50 cc/h Status: Acute (2) Diabetes mellitus: Takes metformin at home. Hold off on insulin sliding scale for now. Check A1c. Status: Acute (3) Hypertension: Goal blood pressure less than 140/90 mmHg. Continue with home dose of atenolol, lisinopril. Uptitrate as per blood pressure goals. Status: Acute (4) Hypothyroid: Check TSH. Continue home dose of levothyroxine. Status: Acute Plan Check iron panel, vitamin B12, folate, TSH, lipid panel, A1c, urinalysis Full code NPO. 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
[2022-05-16 17:25] LABS: Bacteria Urine TRACE /hpf; Bilirubin Urine Neg (Negative); Blood Urine Neg (Negative); Glucose Urine UA Norm (Normal); Ketones Urine 1+ (Negative); Leukocyte Esterase Urine 1+ (Negative); Nitrate Urine Negative (Negative); Protein Urine Trace (Negative); Squamous Epithelial Cell Urine 0-4 /hpf (0-5); Urine Appearance Clear (CLEAR); Urine Color Yellow (Yellow); Urobilinogen Urine 1 mg/dL (Negative); pH Urine 6.5 (5-7)
[2022-05-16 17:26] LABS: Add Urine Culture? No
[2022-05-16 17:35] LABS: Thyroid Stimulating Hormone 0.41 uIU/mL (0.27-4.20)
--- NOTE | 2022-05-16 17:54 | PC.NURSE ---
ATTEMPTED REPORT NURSE UNAVAILABLE.
[2022-05-16 19:17] LABS: Iron 44 ug/dL (37-145); Percent Saturation 12.7 % (20-50); Total Iron Binding Capacity 346 mcg/dl; Unsaturated Iron Binding 302 ug/dL (112-347)
[2022-05-16 19:32] LABS: Procalcitonin 0.07 ng/mL (0-0.5); Vitamin B12 337 pg/mL (232-1245)
[2022-05-16 19:33] LABS: Folate Level 9.9 ng/mL (4.8-37.3)
[2022-05-16] MEDS: sodium chloride 0.9% 1,000 ML 50 ML IV (19:36)
[2022-05-17] VITALS (13 sets, daily range): BP systolic 109–165; BP diastolic 61–87; PULSE 59–82; RESP 16–24; TEMP 36.1–37.1; O2SAT 91–96
[2022-05-17] MEDS: piperacillin-tazobactam 3.375 GM in sodium chloride 0.9% (plus) 50 ML IV ×2 (00:20→16:18)
--- NOTE | 2022-05-17 07:00 | P.HP_ITS ---
Providers/Chief Complaint Admitting Physician: Mack Zamudio DO Primary Care Provider: Rebecca Forrest MD Chief Complaint: Abd pain N/V History of Present Illness Lynn Kerr is a 61 year old female presented to the hospital with a 1 week history of abdominal pain. She reports that she has epigastric and right upper quadrant abdominal pain which is sharp and constant. The pain radiates to her back. Eating makes the pain worse. Nothing seems to make the pain pain better. She reports diarrhea, nausea, vomiting, fever and chills. Her only surgery on her belly was a hysterectomy. She denies any constipation, hematemesis, hematochezia and/or melena Review of Systems General: Reports: 10 or more systems reviewed and unremarkable except in HPI and below Medications/Allergies Home Medications Medication Instructions Recorded Confirmed Last Taken Type lisinopril 5 mg tablet 5 mg PO DAILY 12/19/19 05/16/22 05/16/22 History metformin 500 mg tablet 500 mg PO DAILY 12/19/19 05/16/22 05/16/22 History spironolactone 25 mg tablet 50 mg PO BID 12/19/19 05/16/22 05/16/22 History alendronate 70 mg tablet 70 mg PO Q7D 05/16/22 05/16/22 Unknown History amitriptyline 50 mg tablet 50 mg PO BEDTIME 05/16/22 05/16/22 05/15/22 History atenolol 50 mg tablet 50 mg PO BID 05/16/22 05/16/22 05/16/22 History levothyroxine 88 mcg tablet 88 mcg PO DAILY 05/16/22 05/16/22 05/16/22 History (Euthyrox) ondansetron 8 mg disintegrating 8 mg PO Q8H PRN Nausea 05/16/22 05/16/22 Unknown History tablet permethrin 5 % topical cream 1 applic topical . DIRECTED 05/16/22 05/16/22 05/15/22 History Allergies Allergy/AdvReac Type Severity Reaction Status Date / Time No Known Allergies Allergy Verified 12/19/19 09:15 PFSH Acute PFSH: Medical History Diabetes mellitus High cholesterol History of skull fracture Hypertension Hypothyroid Surgical History History of hysterectomy Status post removal of thyroid nodule Family History Other Dementia Denies family history of Cancer Social History Smoking and tobacco status: never smoked Alcohol intake: never Household members: other Details: parents Current occupational status: unemployed Vitals/I&O/Wt Last Vital Signs Temp 98.3 F 05/17/22 04:00 Pulse 59 L 05/17/22 04:00 Resp 17 05/17/22 04:00 BP 143/77 05/17/22 04:00 Pulse Ox 95 05/17/22 04:00 O2 Del Method 05/16/22 18:09 05/16/22 05/17/22 05/17/22 22:59 06:59 14:59 Intake Total 1170 / 1170 Balance 1170 / 1170 Weight last 48 hrs Weight 160 lb Physical Exam Narrative: General : Patient is well developed , no acute distress, oriented x3 Head : Normal cephalic, a-traumatic. Ears : Pinnae and external canal are normal. Hearing is normal. Eyes : PERRLA, Sclera and injection are normal. No conjunctival discharge. Nose : Mucous membranes are without erythema. Throat : buccal mucosa is normal, gums are without significant recession or hypertrophy. Lungs : Equal chest rise bilaterally, no use of accessory muscles, trachea is midline. Cor : Rate and rhythm are normal. Abdomen : Soft, ND, tender to palpation right upper quadrant, negative Toribio's, no g/r/m Extremities : No edema, no cyanosis or clubbing, dorsalis pedis pulses are present bilaterally, non-tender to palpation of calves. Upper extremities are normal bilaterally. Back : non-tender to palpation, no CVA tenderness. Neuro : CN II - XII intact, Upper and lower extremities have equal and full strength Data : 05/16/22 14:17 05/16/22 14:17 Micro: Microbiology 05/16/22 15:47 Blood Culture - Preliminary Blood SPECIMEN COLLECTED 05/16/22 15:47 Blood Culture - Preliminary Blood SPECIMEN COLLECTED A&P Assessment and plan (1) Acute calculous cholecystitis: Status: Acute Plan Laparoscopic cholecystectomy The risks and benefits of the procedure, including but not limited to, bleeding, infection, scar, numbness, pain, damage to surrounding structures, damage to common bile duct requiring additional surgery, conversion to an open procedure, were explained to the patient. He is understanding of the risks and wishes to proceed. 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
[2022-05-17 07:02] LABS: Glucose Point of Care 107 mg/dL (70-110)
--- NOTE | 2022-05-17 08:06 | ANES.PREANE2 ---
Pre-Anesthetic Assessment Height/Weight: Height 1.65 m Weight 72.575 kg Temp Pulse Resp BP Pulse Ox O2 Del Method 98.3 F 59 L 17 143/77 95 05/17/22 04:00 05/17/22 04:00 05/17/22 04:00 05/17/22 04:00 05/17/22 04:00 05/16/22 18:09 Preop Diagnosis: Acute calculus cholecystitis Operation Date: 05/17/22 13:40 Proposed Procedures p Laparoscopic Cholecystectomy(Not Applicable) - Mack Zamudio DO Familial anesthetic complications: None Was Beta Bredna taken within 24 hours: Yes Was Clonidine taken within 24 hours: N/A Last intake: Intake Last Liquid Date 05/16/22 Last Liquid Time 22:00 Last Solid Date 05/16/22 Last Solid Time 08:00 Social No alcohol and No tobacco Exam alert, oriented x 3, clear to auscultation bilaterally and regular rate & rhythm Airway Mallampati: Class II Dentition: full Pulmonary None reported CV/HEM Hypertension None reported Hepatic None reported GI None reported Metabolic Diabetes Mellitus and Thyroid Disease [facility] None reported Neuropsych None reported Anesthetic Plan ASA status: 3 Anesthesia: General Risk of > 500 ml blood loss (7ml/kg in children): No Medications/Allergies Home Medications Medication Instructions Recorded Confirmed Last Taken Type lisinopril 5 mg tablet 5 mg PO DAILY 12/19/19 05/16/22 05/16/22 History metformin 500 mg tablet 500 mg PO DAILY 12/19/19 05/16/22 05/16/22 History spironolactone 25 mg tablet 50 mg PO BID 12/19/19 05/16/22 05/16/22 History alendronate 70 mg tablet 70 mg PO Q7D 05/16/22 05/16/22 Unknown History amitriptyline 50 mg tablet 50 mg PO BEDTIME 05/16/22 05/16/22 05/15/22 History atenolol 50 mg tablet 50 mg PO BID 05/16/22 05/16/22 05/16/22 History levothyroxine 88 mcg tablet 88 mcg PO DAILY 05/16/22 05/16/22 05/16/22 History (Euthyrox) ondansetron 8 mg disintegrating 8 mg PO Q8H PRN Nausea 05/16/22 05/16/22 Unknown History tablet permethrin 5 % topical cream 1 applic topical . DIRECTED 05/16/22 05/16/22 05/15/22 History Allergies Allergy/AdvReac Type Severity Reaction Status Date / Time No Known Allergies Allergy Verified 12/19/19 09:15 Current Medications Generic Name Dose Route Start Last Admin Trade Name Freq PRN Reason Stop Dose Admin Piperacillin Sod/Tazobactam 50 mls @ 12.5 mls/hr 05/17/22 00:00 05/17/22 07:53 Sod 3.375 gm/ Sodium Chloride IV Infused Q8H THOMAS Infusion Protocol Sodium Chloride 1,000 mls @ 50 mls/hr 05/16/22 18:09 05/16/22 19:36 Sodium Chloride 0.9% IV 50 mls/hr .Q20H THOMAS Administration Morphine Sulfate 1 mg 05/16/22 19:42 05/17/22 00:21 Morphine 2 Mg/Ml Syr 1 Ml IVP 1 mg Q4H PRN Administration SEVERE PAIN PFSH Anesthesia Medical History Diabetes mellitus High cholesterol History of skull fracture Hypertension Hypothyroid Surgical History History of hysterectomy Status post removal of thyroid nodule Family History Other Dementia Denies family history of Cancer Social History Smoking and tobacco status: never smoked Alcohol intake: never Household members: other Details: parents Current occupational status: unemployed Data Anesthesia : 05/16/22 14:17 05/16/22 14:17 Short CBC 05/16/22 Range/Units 14:17 WBC 15.5 H (4.0-10.0) 10^3/uL Hgb 14.4 (11.5-15.3) g/dL Hct 45.7 (37.0-47.0) % MCV 97.2 (81-99) fl Plt Count 324 (130-400) 10^3/cmm Neut % (Auto) 84.9 % Neut # (Auto) 13.16 H (1.8-7.7) 10^3/uL BMP 05/16/22 14:17 Sodium 135 L Potassium 4.2 Chloride 98 Carbon Dioxide 22 BUN 16 Creatinine 1.0 H Glucose 131 H Calcium 9.1 Cardiac Enzymes 05/16/22 Range/Units 14:17 Troponin T Baseline 6 (0-10) ng/L Liver Function 05/16/22 Range/Units 14:17 Total Bilirubin 0.5 (0.15-1.2) mg/dL AST 12 (0-32) U/L ALT 11 (0-33) U/L Alkaline Phosphatase 97 (35-105) U/L Albumin 4.3 (3.5-5.2) g/dL Urine 05/16/22 Range/Units 16:08 Urine Color Yellow (Yellow) Urine Appearance Clear (CLEAR) Urine pH 6.5 (5-7) Ur Specific [place] 1.010 (1.005-1.030) Urine Protein Trace (Negative) Urine Glucose (UA) Norm (Normal) Urine Ketones 1+ H (Negative) Urine Nitrate Negative (Negative) Urine Bilirubin Neg (Negative) Ur Leukocyte Esterase 1+ H (Negative) Urine RBC None (0-2) /hpf Urine WBC 5-10 H (0-5) /hpf Microbiology 05/16/22 15:47 Blood Culture - Preliminary Blood SPECIMEN COLLECTED 05/16/22 15:47 Blood Culture - Preliminary Blood SPECIMEN COLLECTED Cardiac Studies: No Data to Display
[2022-05-17] MEDS: ondansetron 2 mg/ML SDV 2 mL 4 MG IVP (08:07)
[2022-05-17] MEDS: fentaNYL 50 mcg/mL INJ 2mL IVP (08:07)
[2022-05-17 09:02] LABS: Basophils % 0.2 %; Eosinophils % 0.1 %; Hematocrit 40.4 % (37.0-47.0); Hemoglobin 13.3 g/dL (11.5-15.3); Lymphocytes % 6.8 %; Mean Corpuscular HGB Conc 32.9 g/dL (30.0-36.0); Mean Corpuscular Hemoglobin 30.9 pg (28.0-34.0); Mean Platelet Volume 10.9 fL (7.4-10.4); Monocytes # 0.8 10^3/uL (0.2-0.9); Monocytes % 5.5 %; Neutrophils # 12.46 10^3/uL (1.8-7.7); Nucleated Red Blood Cells % 0 %; Platelet Count 223 10^3/cmm (130-400); Red Cell Distribution Width 12.6 % (12.1-15.1); White Blood Count 14.3 10^3/uL (4.0-10.0)
[2022-05-17 09:28] LABS: Estmated Average Glucose 128; Hemoglobin A1C 6.1 % (4.0-6.0)
--- NOTE | 2022-05-17 09:54 | P.PN_ITS ---
Subjective Subjective: No acute events overnight reported by the nurse. Today morning patient is down in the OR for cholecystectomy. Has remained afebrile and hemodynamically stable. Continues to remain on room air. Vitals/I&O/Wt Last Vital Signs Temp 98.3 F 05/17/22 04:00 Pulse 59 L 05/17/22 04:00 Resp 17 05/17/22 04:00 BP 143/77 05/17/22 04:00 Pulse Ox 95 05/17/22 04:00 O2 Del Method 05/16/22 18:09 05/16/22 05/17/22 05/17/22 22:59 06:59 14:59 Intake Total 1170 / 1170 50 / 50 Balance 1170 / 1170 50 / 50 Weight last 48 hrs Weight 72.575 kg Physical Exam Narrative: General: No acute distress, AO x3 HEENT: PERRLA, pupils bilaterally equal and reactive Chest: Normal vesicular breath sounds, no added sounds, equal good air entry bilaterally CVS: S1-S2 regular, no murmurs, no tachycardia, no gallops, no rubs Abdomen: Soft, tender in right upper quadrant, negative Toribio's, no organomega ly, bowel sounds present Neuro: No focal deficits, no facial deformity, AO x3, power 5/5 in all limbs Data : 05/17/22 08:49 05/16/22 14:17 Micro: Microbiology 05/16/22 15:47 Blood Culture - Preliminary Blood SPECIMEN COLLECTED 05/16/22 15:47 Blood Culture - Preliminary Blood SPECIMEN COLLECTED A&P Assessment and plan (1) Acute cholecystitis: After surgical team. For now start on Zosyn. Check blood culture, MRSA swab, procalcitonin NPO. NS at 50 cc/h Status: Acute (2) Diabetes mellitus: Takes metformin at home. Hold off on insulin sliding scale for now. Check A1c. Status: Acute (3) Hypertension: Goal blood pressure less than 140/90 mmHg. Continue with home dose of atenolol, lisinopril. Uptitrate as per blood pressure goals. Status: Acute (4) Hypothyroid: Check TSH. Continue home dose of levothyroxine. Status: Acute Plan Check iron panel, vitamin B12, folate, TSH, lipid panel, A1c, urinalysis Full code NPO. SCDs for DVT prophylaxis Protonix for PUD prophylaxis Plan for the day: Postoperative care. Continue with normal saline and antibiotics. Follow-up blood work. For now continue with home dose of lisinopril. Overnight had mild bradycardia. We will decrease the home dose of atenolol to 25 mg daily. 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
--- NOTE | 2022-05-17 10:27 | P.OP_ITS ---
Operative Report Date of procedure: May 17, 2022 Pre-op diagnosis: Preop Diagnosis Acute calculus cholecystitis Post-op diagnosis: same Procedure done: Laparoscopic Cholecystectomy Implants: Surgicel Specimens removed/disposition: Gallbladder Surgeon: Dr. Mack Zamudio DO Anesthesia: General Estimated blood loss (mL): 300 Complications: None apparent Brief History: This is a 61-year-old female who presented with 1 week of abdominal pain. She was found to have acute calculus cholecystitis. Laparoscopic appendectomy was indicated. The risks and benefits were explained and documented. Procedure: Patient was wheeled into the operative room and placed on the OR table in a supine position. Abdomen was inspected prepped and draped in usual sterile fashion. Time-out was performed and all present were in agreement. A 15 blade scalp was used to make a stab incision in the left upper quadrant and intra- abdominal insufflation was achieved using a Veress needle. After localizing the tissue, incisions were made and a 5 millimeter trocar was placed into the umbilicus as well as 2 in the right upper quadrant. A 12 millimeter trocar was placed in the epigastrium. Gallbladder was grasped and elevated. There was a thick inflammatory peel over an exceptionally inflamed gallbladder. Purulence poured from the gallbladder when it was grasped. This was clearly an acute on chronic infection. Dissection was done meticulously and was quite difficult. The triangle of Calot was carefully dissected using blunt dissection and electrocautery until the triangle of Calot clearly identified. The cystic duct was clipped proximally and double clipped distally. The duct was then ligated proximally. The cystic artery was doubly clipped and ligated. There was a second artery coming from the liver to the gallbladder which was doubly clipped and ligated. The gallbladder was then removed from the liver bed using electrocautery. The gallbladder was removed from the abdomen using an Endo- Catch bag through the epigastric incision. The liver bed was inspected and there was some oozing. Surgicel was placed into the liver bed. 19 [place] drain was then placed under and beside the liver. The drain was sewn in place with 3-0 nylon. The abdomen was irrigated and suctioned. All ports removed. Skin was washed and dried. Incisions were closed with 3-0 and 4-O Vicryl in a subcuticular interrupted fashion. Skin glue was applied. Patient tolerated the procedure well.
[2022-05-17] MEDS: sodium chloride 0.9% 1,000 ML 30 ML IV (11:35)
[2022-05-17] MEDS: sodium chloride 0.9% 1,000 ML 50 ML IV (11:36)
[2022-05-17] MEDS: HYDROmorphone 1 mg/mL INJ 1 mL IVP ×2 (14:21→18:09)
[2022-05-17] MEDS: HYDROcodone-acetaminophen 7.5-325 mg Tablet 1 TAB PO ×2 (16:16→21:12)
[2022-05-17] MEDS: amitriptyline 25 mg Tablet 50 MG PO (20:38)
[2022-05-17 22:34] LABS: Alanine Aminotransferase 43 U/L (0-33); Albumin Level 3.7 g/dL (3.5-5.2); Alkaline Phosphatase 84 U/L (35-105); Blood Urea Nitrogen 16 mg/dL (8-23); Calcium 7.8 mg/dL (8.5-10.5); Carbon Dioxide 20 mmol/L (22-29); Chloride 99 mmol/L (98-107); Chol HDL Ratio 2.79 mg/dL (0.0-4.40); Cholesterol 120 mg/dL (0-200); Globulin 2.9 g/dL (1.3-4.6); Glomerular Filtration Rate 63.2 mL/min (90-130); Glucose 171 mg/dL (65-115); HDL Cholesterol 43 mg/dL (60-100); LDL Cholesterol Calculated 57 mg/dL (50-129); Osmolality Calculated 275 mOsm/kg (285-295); Sodium 130 mmol/L (136-145); Total Bilirubin 0.9 mg/dL (0.15-1.2); Total Protein 6.6 g/dL (6.6-8.7); Triglycerides 98 mg/dL (0-150); VLDL Cholestrol Calculation 20 mg/dL (0-30)
[2022-05-17 22:36] LABS: Anion Gap 15.5 (5-19); Aspartate Amino Transferase 59 U/L (0-32)
[2022-05-17 22:37] LABS: Potassium 4.5 mmol/L (3.5-5.1)
[2022-05-18] VITALS (7 sets, daily range): BP systolic 95–113; BP diastolic 56–70; PULSE 71–82; RESP 16–20; TEMP 36.3–37.3; O2SAT 91–97
[2022-05-18] MEDS: piperacillin-tazobactam 3.375 GM in sodium chloride 0.9% (plus) 50 ML IV ×4 (00:32→23:52)
[2022-05-18 03:09] LABS: Basophils % 0.1 %; Hematocrit 37.6 % (37.0-47.0); Hemoglobin 11.8 g/dL (11.5-15.3); Lymphocytes # 1.2 10^3/uL (0.8-4.8); Lymphocytes % 8.7 %; Mean Corpuscular HGB Conc 31.4 g/dL (30.0-36.0); Mean Corpuscular Hemoglobin 30.6 pg (28.0-34.0); Mean Corpuscular Volume 97.7 fl (81-99); Monocytes # 1.4 10^3/uL (0.2-0.9); Monocytes % 9.9 %; Neutrophils % 80.9 %; Nucleated Red Blood Cells % 0 %; Platelet Count 282 10^3/cmm (130-400); Red Blood Count 3.85 10^6/uL (4.1-5.3); Red Cell Distribution Width 12.8 % (12.1-15.1); White Blood Count 14.1 10^3/uL (4.0-10.0)
[2022-05-18 03:28] LABS: Alanine Aminotransferase 37 U/L (0-33); Albumin Level 3.7 g/dL (3.5-5.2); Alkaline Phosphatase 75 U/L (35-105); Anion Gap 13.3 (5-19); Aspartate Amino Transferase 44 U/L (0-32); Blood Urea Nitrogen 16 mg/dL (8-23); Calcium 7.9 mg/dL (8.5-10.5); Carbon Dioxide 23 mmol/L (22-29); Chloride 100 mmol/L (98-107); Globulin 2.4 g/dL (1.3-4.6); Glomerular Filtration Rate 63.2 mL/min (90-130); Glucose 129 mg/dL (65-115); Osmolality Calculated 277 mOsm/kg (285-295); Potassium 4.3 mmol/L (3.5-5.1); Sodium 132 mmol/L (136-145); Total Bilirubin 0.8 mg/dL (0.15-1.2); Total Protein 6.1 g/dL (6.6-8.7)
--- NOTE | 2022-05-18 08:42 | PM.PN ---
Subjective Subjective: Patient reports that her pain is controlled. Denies any nausea or vomiting. Vitals/I&O/Wt Last Vital Signs Temp 98.1 F 05/18/22 08:00 Pulse 80 05/18/22 08:29 Resp 20 H 05/18/22 08:29 BP 109/56 05/18/22 08:00 Pulse Ox 97 05/18/22 08:29 O2 Del Method 05/18/22 08:29 O2 Flow Rate 6 05/17/22 20:00 05/17/22 05/18/22 05/18/22 22:59 06:59 14:59 Intake Total 1410 / 2460 360 / 2820 50 / 50 Output Total 50 / 350 80 / 430 Balance 1360 / 2110 280 / 2390 50 / 50 Weight last 48 hrs Weight 160 lb Physical Exam Narrative: General: No acute distress, awake alert and oriented x3 Abdomen: Soft, mildly distended, appropriately tender to palpation, no guarding rebound or masses Incisions intact without erythema or exudate Drain: Dark thin output. Difficult to discern if there is bile as Surgicel was used Data : 05/18/22 02:44 05/18/22 02:44 Micro: Microbiology 05/16/22 15:47 Blood Culture - Preliminary Blood NEGATIVE TO DATE 05/16/22 15:47 Blood Culture - Preliminary Blood NEGATIVE TO DATE 05/16/22 18:40 MRSA Culture - Final Nose A&P Assessment and plan (1) Acute calculous cholecystitis: Status: Acute Plan POD#1 s/p laparoscopic cholecystectomy Her white count remains elevated, although somewhat lower. Her drain is dark, however it is difficult to tell if there is bile in it as Surgicel was used. We will keep in the hospital for at least 1 more day for observation and pain control, along with IV antibiotics. I will reassess her and the drain in the morning. Regular diet Continue Zosyn I appreciate the assistance of internal medicine Attestations Medical Necessity Statement*: Patient requires at least 1 more night in the hospital for IV antibiotics and observation Coding Level of Care Code Acute Detention Deputy for [facility] Diagnoses Acute calculous cholecystitis K80.00
[2022-05-18] MEDS: pantoprazole 40 mg SDV IVP (08:59)
[2022-05-18] MEDS: levothyroxine 88 mcg Tablet PO (09:00)
[2022-05-18] MEDS: atenolol 50 mg Tablet 25 MG PO (09:00)
[2022-05-18] MEDS: HYDROmorphone 1 mg/mL INJ 1 mL IVP (09:01)
[2022-05-18] MEDS: lisinopril 5 mg Tablet PO (09:01)
[2022-05-18] MEDS: sodium chloride 0.9% 1,000 ML 50 ML IV (09:09)
--- NOTE | 2022-05-18 11:30 | PM.PN ---
Subjective Subjective: Seen this morning. No acute events overnight. Drain has about 20 cc of very dark output, liquid, no purulence. She feels well and is now complaints or concerns at this time. Patient has not passed gas yet and has not had a bowel movement. Vitals/I&O/Wt Last Vital Signs Temp 98.1 F 05/18/22 08:00 Pulse 80 05/18/22 08:29 Resp 20 H 05/18/22 08:29 BP 109/56 05/18/22 08:00 Pulse Ox 97 05/18/22 08:29 O2 Del Method 05/18/22 08:29 O2 Flow Rate 6 05/17/22 20:00 05/17/22 05/18/22 05/18/22 22:59 06:59 14:59 Intake Total 1410 / 2460 360 / 2820 1050 / 1050 Output Total 50 / 350 80 / 430 Balance 1360 / 2110 280 / 2390 1050 / 1050 Weight last 48 hrs Weight 72.575 kg Physical Exam Narrative: General: No acute distress, AO x3 HEENT: EOMI, NC/AT Chest: Normal vesicular breath sounds, no added sounds, equal good air entry bilaterally CVS: S1-S2 regular, no murmurs, no tachycardia, no gallops, no rubs Abdomen: Soft, tender in right upper quadrant, bowel sounds present Extremities: No lower extremity edema Data : 05/18/22 02:44 05/18/22 02:44 Micro: Microbiology 05/16/22 15:47 Blood Culture - Preliminary Blood NEGATIVE TO DATE 05/16/22 15:47 Blood Culture - Preliminary Blood NEGATIVE TO DATE 05/16/22 18:40 MRSA Culture - Final Nose A&P Assessment and plan (1) Acute calculous cholecystitis: Status: Acute (2) Hypothyroid: Status: Acute (3) Hypertension: Status: Acute (4) Diabetes mellitus: Status: Acute (5) Acute cholecystitis: Status: Acute Plan #Acute gangrenous cholecystitis, status postcholecystectomy postop day 1 #Leukocytosis #Diabetes mellitus #Hypertension #Hypothyroidism ?Check iron panel, vitamin B12, folate, TSH, lipid panel, A1c, urinalysis ? General surgery following patient. Patient will need to stay in hospital for observation and pain control today along with IV antibiotics. ? Blood pressure borderline on lower side. I will stop lisinopril at this time. ? Continue Zosyn Full code Regular diet SCDs for DVT prophylaxis Protonix for PUD prophylaxis Attestations Medical Necessity Statement*: Please continue inpatient observation and hospital stay for pain control and IV antibiotics. Coding Level of Care Code Acute Bereavement Counselor for g Fwd Diagnoses Acute calculous cholecystitis K80.00 Hypothyroid E03.9 Hypertension I10 Diabetes mellitus E11.9 Acute cholecystitis K81.0
[2022-05-18] MEDS: HYDROcodone-acetaminophen 7.5-325 mg Tablet 1 TAB PO ×2 (14:57→23:51)
--- NOTE | 2022-05-18 15:03 | PC.NURSE ---
patient resting in bed watching tv. Has ambulated in the gomes without difficulty, tolerating diet well and is taking hydrocodone as needed with reports of pain being improved. JOSEFINA drain draining without complication, site without s/s of infection.
[2022-05-18] MEDS: amitriptyline 25 mg Tablet 50 MG PO (20:48)
[2022-05-19] VITALS: BP 101/59; PULSE 80; RESP 18; TEMP 37.7; O2SAT 92
[2022-05-19 04:00] VITALS: BP 110/54; PULSE 73; RESP 20; TEMP 37.1; O2SAT 89
[2022-05-19] MEDS: sodium chloride 0.9% 1,000 ML 50 ML IV (06:10)
[2022-05-19 06:44] LABS: Basophils # 0.1 10^3/uL (0.0-0.1); Basophils % 0.5 %; Eosinophils # 0.2 10^3/uL (0.0-0.8); Eosinophils % 2.2 %; Hematocrit 36.3 % (37.0-47.0); Lymphocytes # 2.1 10^3/uL (0.8-4.8); Lymphocytes % 21.4 %; Mean Corpuscular HGB Conc 30.3 g/dL (30.0-36.0); Mean Corpuscular Hemoglobin 30.5 pg (28.0-34.0); Mean Corpuscular Volume 100.6 fl (81-99); Mean Platelet Volume 9.9 fL (7.4-10.4); Monocytes # 0.9 10^3/uL (0.2-0.9); Monocytes % 9.1 %; Neutrophils # 6.58 10^3/uL (1.8-7.7); Neutrophils % 66.2 %; Nucleated Red Blood Cells % 0 %; Platelet Count 241 10^3/cmm (130-400); Red Blood Count 3.61 10^6/uL (4.1-5.3); White Blood Count 9.9 10^3/uL (4.0-10.0)
[2022-05-19 07:00] LABS: Alanine Aminotransferase 24 U/L (0-33); Alkaline Phosphatase 69 U/L (35-105); Anion Gap 13.7 (5-19); Aspartate Amino Transferase 17 U/L (0-32); Blood Urea Nitrogen 16 mg/dL (8-23); Calcium 8.1 mg/dL (8.5-10.5); Carbon Dioxide 21 mmol/L (22-29); Chloride 104 mmol/L (98-107); Glomerular Filtration Rate 63.2 mL/min (90-130); Glucose 125 mg/dL (65-115); Osmolality Calculated 283 mOsm/kg (285-295); Potassium 3.7 mmol/L (3.5-5.1); Sodium 135 mmol/L (136-145); Total Bilirubin 0.6 mg/dL (0.15-1.2)
[2022-05-19 08:00] VITALS: BP 108/76; PULSE 70; RESP 16; TEMP 36.8; O2SAT 93
[2022-05-19] MEDS: HYDROcodone-acetaminophen 7.5-325 mg Tablet 1 TAB PO (08:30)
[2022-05-19] MEDS: atenolol 50 mg Tablet 25 MG PO (08:52)
[2022-05-19] MEDS: pantoprazole 40 mg SDV IVP (08:53)
[2022-05-19] MEDS: piperacillin-tazobactam 3.375 GM in sodium chloride 0.9% (plus) 50 ML IV (08:54)
[2022-05-19 09:35] VITALS: PULSE 70; RESP 16; O2SAT 93
[2022-05-19] MEDS: levothyroxine 88 mcg Tablet PO (10:34)
--- NOTE | 2022-05-19 11:06 | PM.PN ---
Subjective Subjective: Seen this morning. No acute events overnight. Very minimal drainage in the drain today. Patient passing gas and feeling a lot better. Tolerating oral diet. Vitals/I&O/Wt Last Vital Signs Temp 98.3 F 05/19/22 08:00 Pulse 70 05/19/22 09:35 Resp 16 05/19/22 09:35 BP 108/76 05/19/22 08:00 Pulse Ox 93 05/19/22 09:35 O2 Del Method 05/19/22 09:35 O2 Flow Rate 6 05/17/22 20:00 05/18/22 05/19/22 05/19/22 22:59 06:59 14:59 Intake Total 410 / 1510 1170 / 2680 240 / 240 Output Total / Balance 385 / 1440 1170 / 2610 240 / 240 Physical Exam Narrative: General: No acute distress, AO x3 HEENT: EOMI, NC/AT Chest: Normal vesicular breath sounds, no added sounds, equal good air entry bilaterally CVS: S1-S2 regular, no murmurs, no tachycardia, no gallops, no rubs Abdomen: Soft, very mildly tender in right upper quadrant, improved compared to yesterday bowel sounds present. Minimal output in drain dark color. Extremities: No lower extremity edema Data : 05/19/22 06:27 05/19/22 06:27 A&P Assessment and plan (1) Acute calculous cholecystitis: Status: Acute (2) Hypothyroid: Status: Acute (3) Hypertension: Status: Acute (4) Diabetes mellitus: Status: Acute (5) Acute cholecystitis: Status: Acute Plan #Acute gangrenous cholecystitis, status postcholecystectomy postop day 1 #Leukocytosis #Diabetes mellitus #Hypertension #Hypothyroidism ?B12 337, folate 9.9, hemoglobin 11, MCV 100.6. ? General surgery managing patient. Continue IV antibiotics. ? Blood pressure borderline on lower side. I will stop lisinopril at this time. -Cut on Dilaudid 0.5 every 4 hours yesterday. I will stop Dilaudid today. We will switch to oral pain medication. ? Continue Zosyn Full code Regular diet SCDs for DVT prophylaxis Protonix for PUD prophylaxis Attestations Medical Necessity Statement*: Defer to primary team. Coding Level of Care Code Acute Hospice Liaison for [facility] Fwd Diagnoses Acute calculous cholecystitis K80.00 Hypothyroid E03.9 Hypertension I10 Diabetes mellitus E11.9 Acute cholecystitis K81.0
[2022-05-19] MEDS: sodium chloride 0.9% 500 ML 999 ML IV (11:24)
[2022-05-19 11:45] VITALS: BP 104/63; PULSE 70; RESP 16; TEMP 37; O2SAT 91
--- NOTE | 2022-05-19 12:10 | PM.DCS ---
Discharge Providers Date of Admission: 05/17/22 13:01 Date of Discharge: May 19, 2022 Attending Provider at Admission: Mack Zamudio DO Attending Provider at Discharge: Mack Zamudio DO Primary Care Provider: Rebecca Forrest MD Diagnoses at Discharge Discharge Diagnosis (1) Acute calculous cholecystitis: Status: Acute (2) Hypothyroid: Status: Acute (3) Hypertension: Status: Acute (4) Diabetes mellitus: Status: Acute (5) Acute cholecystitis: Status: Acute Reason for Visit Reason for Visit: Abd pain N/V Hospital Course Hospital Course This is a very pleasant 61-year-old female who came to the hospital with a 1 week history of abdominal pain. She was diagnosed with acute calculus cholecystitis. She underwent laparoscopic cholecystectomy, and the gallbladder was quite inflamed. She did well postoperatively and was discharged home on postoperative day 2 on pain medication and antibiotics Physical Exam Narrative: General : Patient is well developed , no acute distress, oriented x3 Head : Normal cephalic, a-traumatic. Ears : Pinnae and external canal are normal. Hearing is normal. Eyes : PERRLA, Sclera and injection are normal. No conjunctival discharge. Nose : Mucous membranes are without erythema. Throat : buccal mucosa is normal, gums are without significant recession or hypertrophy. Lungs : Equal chest rise bilaterally, no use of accessory muscles, trachea is midline. Cor : Rate and rhythm are normal. Abdomen : Soft, ND, appropriately tender, no g/r/m Incisions intact without erythema or exudate Extremities : No edema, no cyanosis or clubbing, dorsalis pedis pulses are present bilaterally, non-tender to palpation of calves. Upper extremities are normal bilaterally. Back : non-tender to palpation, no CVA tenderness. Neuro : CN II - XII intact, Upper and lower extremities have equal and full strength Discharge Data Studies Completed and Pending Completed Studies During Hospitalization Category Date Time Status US abdomen limited [id number] Stat Ultrasound 05/16/22 14:01 Completed Pending at discharge Category Date Time Status Blood Culture Stat Lab 05/16/22 15:47 Results Pathology: Surgical [PTH] Routine Pth 05/17/22 10:27 Received Radiology Impressions Abdomen Ultrasound 05/16/22 14:01 IMPRESSION: Findings are consistent with cholecystitis.Clinical correlation is advised. Laboratory Results WBC 9.9 10^3/uL (4.0-10.0) 05/19/22 06:27 RBC 3.61 10^6/uL (4.1-5.3) L 05/19/22 06:27 Hgb 11.0 g/dL (11.5-15.3) L 05/19/22 06:27 Hct 36.3 % (37.0-47.0) L 05/19/22 06:27 MCV 100.6 fl (81-99) H 05/19/22 06:27 MCH 30.5 pg (28.0-34.0) 05/19/22 06: MCHC 30.3 g/dL (30.0-36.0) 05/19/22 06: RDW 13.0 % (12.1-15.1) 05/19/22 06:27 Plt Count 241 10^3/cmm (130-400) 05/19/22 06:27 MPV 9.9 fL (7.4-10.4) 05/19/22 06:27 Neut % (Auto) 66.2 % 05/19/22 06:27 Lymph % (Auto) 21.4 % 05/19/22 06:27 [place] % (Auto) 9.1 % 05/19/22 06:27 Eos % (Auto) 2.2 % 05/19/22 06:27 Baso % (Auto) 0.5 % 05/19/22 06:27 Neut # (Auto) 6.58 10^3/uL (1.8-7.7) 05/19/22 06:27 Lymph # (Auto) 2.1 10^3/uL (0.8-4.8) 05/19/22 06:27 [place] # (Auto) 0.9 10^3/uL (0.2-0.9) 05/19/22 06:27 Eos # (Auto) 0.2 10^3/uL (0.0-0.8) 05/19/22 06:27 Baso # (Auto) 0.1 10^3/uL (0.0-0.1) 05/19/22 06:27 Nucleated RBC % (auto) 0 % 05/19/22 06:27 Nucleated RBCs # 0.0 /100WBC 05/19/22 06:27 Sodium 135 mmol/L (136-145) L 05/19/22 06:27 Potassium 3.7 mmol/L (3.5-5.1) 05/19/22 06:27 Chloride 104 mmol/L (98-107) 05/19/22 06:27 Carbon Dioxide 21 mmol/L (22-29) L 05/19/22 06:27 Anion Gap 13.7 (5-19) 05/19/22 06:27 BUN 16 mg/dL (8-23) 05/19/22 06:27 Creatinine 0.9 mg/dL (0.5-0.9) 05/19/22 06:27 GFR Calculation 63.2 mL/min (90-130) L 05/19/22 06:27 Glucose 125 mg/dL (65-115) H 05/19/22 06:27 POC Glucose 107 mg/dL (70-110) 05/17/22 06:58 Estimat Average Glucose 128 05/16/22 14:17 Hemoglobin A1c 6.1 % (4.0-6.0) H 05/16/22 14:17 Calculated Osmolality 283 mOsm/kg (285-295) L 05/19/22 06:27 Lactate 1.5 mmol/L (0.5-2.2) 05/16/22 14:17 Calcium 8.1 mg/dL (8.5-10.5) L 05/19/22 06:27 Iron 44 ug/dL (37-145) 05/16/22 14:17 TIBC 346 mcg/dl 05/16/22 14:17 % Saturation 12.7 % (20-50) L 05/16/22 14:17 Unsat Iron Binding 302 ug/dL (112-347) 05/16/22 14:17 Total Bilirubin 0.6 mg/dL (0.15-1.2) 05/19/22 06:27 AST 17 U/L (0-32) 05/19/22 06:27 ALT 24 U/L (0-33) 05/19/22 06:27 Alkaline Phosphatase 69 U/L (35-105) 05/19/22 06:27 Troponin T Baseline 6 ng/L (0-10) 05/16/22 14:17 Total Protein 6.0 g/dL (6.6-8.7) L 05/19/22 06:27 Albumin 3.0 g/dL (3.5-5.2) L 05/19/22 06:27 Globulin 3.0 g/dL (1.3-4.6) 05/19/22 06:27 Triglycerides 98 mg/dL (0-150) 05/17/22 22:06 Cholesterol 120 mg/dL (0-200) 05/17/22 22:06 LDL Cholesterol, Calc 57 mg/dL (50-129) 05/17/22 22:06 Total VLDL Cholesterol 20 mg/dL (0-30) 05/17/22 22:06 HDL Cholesterol 43 mg/dL (60-100) L 05/17/22 22:06 Cholesterol/HDL Ratio 2.79 mg/dL (0.0-4.40) 05/17/22 22:06 Lipase 16 U/L (13-60) 05/16/22 14:17 Vitamin B12 337 pg/mL (232-1245) 05/16/22 14:17 Folate 9.9 ng/mL (4.8-37.3) 05/16/22 14:17 Procalcitonin 0.07 ng/mL (0-0.5) 05/16/22 14:17 TSH 0.41 uIU/mL (0.27-4.20) 05/16/22 14:17 Urine Color Yellow (Yellow) 05/16/22 16:08 Urine Appearance Clear (CLEAR) 05/16/22 16:08 Urine pH 6.5 (5-7) 05/16/22 16:08 Ur Specific [place] 1.010 (1.005-1.030) 05/16/22 16:08 Urine Protein Trace (Negative) 05/16/22 16:08 Urine Glucose (UA) Norm (Normal) 05/16/22 16:08 Urine Ketones 1+ (Negative) H 05/16/22 16:08 Urine Blood Neg (Negative) 05/16/22 16:08 Urine Nitrate Negative (Negative) 05/16/22 16:08 Urine Bilirubin Neg (Negative) 05/16/22 16:08 Urine Urobilinogen 1 mg/dL (Negative) H 05/16/22 16:08 Ur Leukocyte Esterase 1+ (Negative) H 05/16/22 16:08 Urine RBC None /hpf (0-2) 05/16/22 16:08 Urine WBC 5-10 /hpf (0-5) H 05/16/22 16:08 Ur Squamous Epith Cells 0-4 /hpf (0-5) H 05/16/22 16:08 Amorphous Sediment Not Reportable 05/16/22 16:08 Urine Bacteria Trace /hpf (NONE) 05/16/22 16:08 Vitals Last Vital Signs Temp 98.6 F 05/19/22 11:45 Pulse 70 05/19/22 11:45 Resp 16 05/19/22 11:45 BP 104/63 05/19/22 11:45 Pulse Ox 91 05/19/22 11:45 O2 Del Method 05/19/22 11:45 O2 Flow Rate 6 05/17/22 20:00 Discharge Plan Discharge Patient Disposition: Home Condition: Stable Prescriptions: New hydrocodone-acetaminophen 7.5-325 mg tablet 1 tab PO Q6H PRN (Reason: pain) Qty: 20 0RF amoxicillin-pot clavulanate 875-125 mg tablet 1 tab PO BID 12 Days Qty: 24 0RF Continued lisinopril 5 mg tablet 5 mg PO DAILY spironolactone 25 mg tablet 50 mg PO BID metformin 500 mg tablet 500 mg PO DAILY permethrin 5 % cream 1 applic TOPICAL . DIRECTED ondansetron 8 mg tablet,disintegrating 8 mg PO Q8H PRN (Reason: Nausea) Euthyrox 88 mcg tablet 88 mcg PO DAILY atenolol 50 mg tablet 50 mg PO BID alendronate 70 mg tablet 70 mg PO Q7D Rx Instructions: on amitriptyline 50 mg tablet 50 mg PO BEDTIME Discharge Orders: Discharge Order (Routine); Ordered 05/19/22 Ordered By: Mack Zamudio Referrals: Rebecca Forrest MD [Primary Care Provider] - 4-7 days Mack Zamudio DO [Physician] - 2 weeks Discharge Diet: Advance as tolerated Discharge Activity: Resume usual activity Patient Instructions: Opioid Safety, Post Anesthesia Care Activity Restrictions/Additional Instructions: Do not soak incisions under water for 2 weeks. Leave bandage over drain site for 2-3 days before removing. Discharge Attestations Time Spent in Discharge Care*: less than 30 min Quality Metrics Clinical Quality Measures [ No reported AMI, CVA or VTE this stay] Coding Level of Care Code Acute Chg FW DC note Diagnoses Acute calculous cholecystitis K80.00 Hypothyroid E03.9 Hypertension I10 Diabetes mellitus E11.9 Acute cholecystitis K81.0
--- NOTE | 2022-05-19 14:01 | PC.NURSE ---
JOSEFINA drain removed, tip intact, well tolerated by patient
== END 2022-05-19 15:11 | disposition home or self-care (01) | DRG 419 ==
LOC: ER 17:37 → MEDSURG 20:28
PROVIDERS: Student in an Organized Health Care Education/Training Program; Admitting Provider Surgery; Emergency Provider Emergency Medicine; PCP Internal Medicine; Visit Provider Surgery
PROC: 0FT44ZZ Resection of Gallbladder, Percutaneous Endoscopic Approach (ICD-10-PCS; CPT 47562; principal; 2022-05-17 13:20)
DX: K80.12 Calculus of gallbladder with acute and chronic cholecystitis without obstruction (principal); E03.9 Hypothyroidism, unspecified; I10 Essential (primary) hypertension; E78.5 Hyperlipidemia, unspecified; E11.9 Type 2 diabetes mellitus without complications; Z79.84 Long term (current) use of oral hypoglycemic drugs
CPT/HCPCS: 36415; 36416; 76705; 80053; 80061; 81001; 82607; 82746; 82962; 83036; 83540; 83550; 83605; 83690; 84145; 84443; 84484; 85025; 87040; 87641; 88304; 93005; 96365; 96375; 99285; C9113; G0378; J0330; J1100; J1170; J2270; J2405; J2543; J2704; J3010; J3490; J7030; J7040

== ENCOUNTER 2023-03-12 09:57 | Emergency (ER) | payer MEDICAID, SELFPAY ==
[2023-03-12 10:14] VITALS: BP 103/64; PULSE 66; RESP 14; TEMP 36.6; O2SAT 95; BMI 26.6
--- NOTE | 2023-03-12 11:03 | ED_ITS ---
HPI - Abdominal Pain General: Chief Complaint: Abdominal Pain Stated Complaint: kidney pain Time Seen by Provider: 03/12/23 11:02 History of Present Illness: Ms. Kerr is a 62-year-old lady with history of hypertension and diabetes presented to the emergency department for concern over flank pain. Notes onset of symptoms few weeks ago initially gradual and intermittent. Burning starting this morning. She is quite anxious and makes references to being possibly in kidney failure though cannot expand on why she believes she is in kidney failure. Perhaps has had changes in urine output. No other family symptoms. No chest pain shortness of breath. No lower extremity edema. No other specific changes in health, exacerbating, or alleviating factors identified. Onset (ago): week(s) Pain Consistency: intermittent Quality: aching and burning Review of Systems General: Reports: 10 or more systems reviewed and unremarkable except in HPI and below PFSH ED PFSH: Medical History Diabetes mellitus High cholesterol History of skull fracture Hypertension Hypothyroid Surgical History History of hysterectomy S/P cholecystectomy Status post removal of thyroid nodule Family History Other Dementia Denies family history of Cancer Social History Smoking and tobacco status: never smoked Alcohol intake: never Household members: other Details: parents Current occupational status: unemployed Physical Exam Const: COMMON NORMALS: alert GENERAL APPEARANCE: cooperative and well de veloped HENMT: COMMON NORMALS: normocephalic and atraumatic HEAD & SCALP: normocephalic and atraumatic Eye: COMMON NORMALS: conjunctivae normal CONJUNCTIVA: Yes conjunctivae normal SCLERA: sclerae normal Neck/C-Spine: COMMON NORMALS: supple GENERAL: Yes trachea midline Resp: COMMON NORMALS: clear to auscultation bilaterally EFFORT & INSPECTION: Yes able to speak in complete sentences AUSCULTATION: clear to auscultation bilaterally Cardio: COMMON NORMALS: regular rate and regular rhythm RATE: regular rate RHYTHM: regular rhythm GI: COMMON NORMALS: Soft to palpation PALPATION: Yes Soft to palpation and No Tenderness to palpation present (GI) : COMMON NORMALS: Yes no CVA tenderness BLADDER/KIDNEY EXAM: Yes no CVA tenderness Back/Pelvis: COMMON NORMALS: no CVA tenderness Extremity: GENERAL: Yes normal exam except as noted and No edema Neuro: COMMON NORMALS: moves all extremities SENSORIUM/ORIENTATION: Yes alert and No Orientation impaired Psych: COMMON NORMALS: mental status grossly normal and Normal thought process present THOUGHT PROCESS: Normal thought process present Course Vital Signs: Vital signs: Vital Signs Temperature 97.8 F 03/12/23 10:14 Pulse Rate 78 03/12/23 13:21 Respiratory Rate 16 03/12/23 13:21 Blood Pressure 132/84 03/12/23 13:21 Pulse Oximetry 96 03/12/23 13:21 Oxygen Delivery Me thod Room Air 03/12/23 10:14 MDM - Abdominal Pain Medical Decision Making 62-year-old lady presenting with urinary symptoms and flank pain. Exam as above. Patient is nontoxic and there is no evidence of acute surgical abdomen. No significant hematologic or metabolic abnormalities. Trace evidence of urinary tract infection. Given clinical exam and laboratory findings I do not feel that patient requires imaging at this time. Patient is comfortable foregoing imaging. Given clinical symptoms I will treat for urinary tract infection The results of ED evaluation were discussed with the patient including prescriptions and/or symptomatic cares (if applicable) including appropriate and responsible use, followup plan, and return precautions. The patient verbalized understanding and felt safe for discharge.. Medical Records I reviewed the patient's medical records. Lab Data I reviewed the patient's lab results. 03/12/23 11:27 03/12/23 11:27 Labs/Radiology: Laboratory Results WBC 9.1 10^3/uL (4.0-10.0) 03/12/23 11:27 RBC 4.53 10^6/uL (4.1-5.3) 03/12/23 11:27 Hgb 13.9 g/dL (11.5-15.3) 03/12/23 11:27 Hct 44.7 % (37.0-47.0) 03/12/23 11:27 MCV 98.7 fl (81-99) 03/12/23 11:27 MCH 30.7 pg (28.0-34.0) 03/12/23 11: MCHC 31.1 g/dL (30.0-36.0) 03/12/23 11:27 RDW 12.6 % (12.1-15.1) 03/12/23 11:27 Plt Count 277 10^3/cmm (130-400) 03/12/23 11:27 MPV 9.8 fL (7.4-10.4) 03/12/23 11:27 Neut % (Auto) 76.2 % 03/12/23 11:27 Lymph % (Auto) 16.3 % 03/12/23 11:27 [place] % (Auto) 5.1 % 03/12/23 11:27 Eos % (Auto) 1.4 % 03/12/23 11:27 Baso % (Auto) 0.4 % 03/12/23 11:27 Neut # (Auto) 6.93 10^3/uL (1.8-7.7) 03/12/23 11:27 Lymph # (Auto) 1.5 10^3/uL (0.8-4.8) 03/12/23 11:27 [place] # (Auto) 0.5 10^3/uL (0.2-0.9) 03/12/23 11:27 Eos # (Auto) 0.1 10^3/uL (0.0-0.8) 03/12/23 11:27 Baso # (Auto) 0.0 10^3/uL (0.0-0.1) 03/12/23 11:27 Nucleated RBC % (auto) 0 % 03/12/23 11: Nucleated RBCs # 0.0 /100WBC 03/12/23 11:27 Sodium 140 mmol/L (136-145) 03/12/23 11:27 Potassium 4.2 mmol/L (3.5-5.1) 03/12/23 11:27 Chloride 101 mmol/L (98-107) 03/12/23 11:27 Carbon Dioxide 27 mmol/L (22-29) 03/12/23 11:27 Anion Gap 16.2 (5-19) 03/12/23 11:27 BUN 14 mg/dL (8-23) 03/12/23 11:27 Creatinine 0.9 mg/dL (0.5-0.9) 03/12/23 11:27 GFR Calculation 63.0 mL/min (90-130) L 03/12/23 11:27 Glucose 118 mg/dL (65-115) H 03/12/23 11:27 Calculated Osmolality 292 mOsm/kg (285-295) 03/12/23 11:27 Calcium 10.0 mg/dL (8.5-10.5) 03/12/23 11:27 Total Bilirubin 0.5 mg/dL (0.15-1.2) 03/12/23 11:27 AST 15 U/L (0-32) 03/12/23 11:27 ALT 17 U/L (0-33) 03/12/23 11:27 Alkaline Phosphatase 95 U/L (35-105) 03/12/23 11:27 Total Protein 7.5 g/dL (6.6-8.7) 03/12/23 11:27 Albumin 4.4 g/dL (3.5-5.2) 03/12/23 11:27 Globulin 3.1 g/dL (1.3-4.6) 03/12/23 11:27 Urine Color Yellow (Yellow) 03/12/23 11:53 Urine Appearance Clear (CLEAR) 03/12/23 11:53 Urine pH 5 (5-7) 03/12/23 11:53 Ur Specific [place] 1.010 (1.005-1.030) 03/12/23 11:53 Urine Protein Neg (Negative) 03/12/23 11:53 Urine Glucose (UA) Norm (Normal) 03/12/23 11:53 Urine Ketones Negative (Negative) 03/12/23 11:53 Urine Blood Neg (Negative) 03/12/23 11:53 Urine Nitrate Negative (Negative) 03/12/23 11:53 Urine Bilirubin Neg (Negative) 03/12/23 11:53 Urine Urobilinogen Norm mg/dL (Negative) 03/12/23 11:53 Ur Leukocyte Esterase 1+ (Negative) H 03/12/23 11:53 Urine RBC None /hpf (0-2) 03/12/23 11:53 Urine WBC 5-10 /hpf (0-5) H 03/12/23 11:53 Ur Squamous Epith Cells 0-4 /hpf (0-5) H 03/12/23 11:53 Amorphous Sediment Not Reportable 03/12/23 11:53 Urine Bacteria Trace /hpf (NONE) 03/12/23 11:53 Discharge Plan Discharge Patient Disposition: Home Clinical Impression: UTI (urinary tract infection), Back pain Condition: Stable Prescriptions: No Action spironolactone 25 mg tablet 50 mg PO BID metformin 500 mg tablet 500 mg PO DAILY mupirocin 2 % ointment 1 applic topical BID Qty: 22 3RF atenolol 50 mg tablet 50 mg PO BID amitriptyline 50 mg tablet 50 mg PO BEDTIME levothyroxine 75 mcg tablet 75 mcg PO DAILY simvastatin 20 mg tablet 20 mg PO BEDTIME Vitamin C 500 mg Tablet Extended Release 500 mg PO DAILY Discharge Orders: Discharge ED (Routine); Ordered 03/12/23 Ordered By: Reji Aranda Referrals: Rebecca Forrest MD [Primary Care Provider] - Discharge Diet: Usual diet Discharge Activity: Resume usual activity Patient Instructions: Urinary Tract Infection in Women (ED), Back Pain (ED) Activity Restrictions/Additional Instructions: Thank you for visiting the emergency department. You were seen and evaluated for flank pain. The exact cause of your symptoms is unclear however may be related to a mild urinary tract infection which will be treated with antibiotics. Please ensure that you are staying hydrated. You may use [id number] medic ations such as acetaminophen and ibuprofen for pain however please do not exceed the daily recommended dosage as listed on the packaging and please keep in mind that many namebrand medications contain the same active ingredients. Please avoid these medications if previously instructed to do so by another physician due to other underlying medical condition. Please follow-up with your primary care provider. Return for anything as discussed or anything that you are concerned about and feel needs emergency department evaluation. 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
[2023-03-12 11:34] LABS: Basophils % 0.4 %; Eosinophils # 0.1 10^3/uL (0.0-0.8); Eosinophils % 1.4 %; Hematocrit 44.7 % (37.0-47.0); Hemoglobin 13.9 g/dL (11.5-15.3); Lymphocytes # 1.5 10^3/uL (0.8-4.8); Lymphocytes % 16.3 %; Mean Corpuscular HGB Conc 31.1 g/dL (30.0-36.0); Mean Corpuscular Hemoglobin 30.7 pg (28.0-34.0); Mean Corpuscular Volume 98.7 fl (81-99); Mean Platelet Volume 9.8 fL (7.4-10.4); Monocytes # 0.5 10^3/uL (0.2-0.9); Monocytes % 5.1 %; Neutrophils # 6.93 10^3/uL (1.8-7.7); Neutrophils % 76.2 %; Nucleated Red Blood Cells % 0 %; Platelet Count 277 10^3/cmm (130-400); Red Blood Count 4.53 10^6/uL (4.1-5.3); Red Cell Distribution Width 12.6 % (12.1-15.1); White Blood Count 9.1 10^3/uL (4.0-10.0)
[2023-03-12 11:53] LABS: Alanine Aminotransferase 17 U/L (0-33); Albumin Level 4.4 g/dL (3.5-5.2); Alkaline Phosphatase 95 U/L (35-105); Anion Gap 16.2 (5-19); Aspartate Amino Transferase 15 U/L (0-32); Blood Urea Nitrogen 14 mg/dL (8-23); Carbon Dioxide 27 mmol/L (22-29); Chloride 101 mmol/L (98-107); Globulin 3.1 g/dL (1.3-4.6); Glucose 118 mg/dL (65-115); Osmolality Calculated 292 mOsm/kg (285-295); Potassium 4.2 mmol/L (3.5-5.1); Sodium 140 mmol/L (136-145); Total Bilirubin 0.5 mg/dL (0.15-1.2); Total Protein 7.5 g/dL (6.6-8.7)
[2023-03-12 12:37] LABS: Add Urine Microscopic? YES; Bilirubin Urine Neg (Negative); Blood Urine Neg (Negative); Glucose Urine UA Norm (Normal); Ketones Urine Negative (Negative); Leukocyte Esterase Urine 1+ (Negative); Nitrate Urine Negative (Negative); Protein Urine Neg (Negative); Urine Appearance Clear (CLEAR); Urine Color Yellow (Yellow); Urobilinogen Urine Norm (Negative); pH Urine 5 (5-7)
[2023-03-12 12:49] LABS: Bacteria Urine TRACE /hpf
[2023-03-12 12:50] LABS: Squamous Epithelial Cell Urine 0-4 /hpf (0-5)
[2023-03-12 12:51] LABS: Add Urine Culture? No
[2023-03-12 13:21] VITALS: BP 132/84; PULSE 78; RESP 16; O2SAT 96
== END 2023-03-12 13:22 | disposition home or self-care (01) ==
PROVIDERS: Emergency Provider Emergency Medicine; PCP Internal Medicine
DX: N39.0 Urinary tract infection, site not specified (principal); M54.9 Dorsalgia, unspecified; Z79.84 Long term (current) use of oral hypoglycemic drugs; E11.9 Type 2 diabetes mellitus without complications; I10 Essential (primary) hypertension
CPT/HCPCS: 36415; 80053; 81001; 85025; 99283

== ENCOUNTER 2023-04-11 14:08 | Outpatient (CLI) | payer MEDICAID, SELFPAY ==
--- NOTE | 2023-04-11 14:25 | MM_ITS ---
WS: [id number] BILATERAL 3D TOMOSYNTHESIS DIGITAL DIAGNOSTIC MAMMOGRAPHY WITH CAD CLINICAL INFORMATION: ABNORMAL MAMMO HISTORY: Additional views requested from April 07, 2022 COMPARISON: April 07, 2022 TECHNIQUE: Bilateral CC, MLO, and ML views. FINDINGS: The breasts are composed of heterogeneous fibroglandular density, which can limit the detection of sm all underlying mass lesions. Biopsy clip RIGHT breast. Punctate and lucent centered calcifications. Previously described 8 mm spiculated asymmetry along the posterior nipple line RIGHT breast on the ML O view partially compresses out on the spot compression views today. Adjacent chronic area of archite ctural distortion in the inferior RIGHT breast is stable dating back to 2007. Ultrasound described be low. LEFT breast is unchanged and unremarkable. ULTRASOUND BREAST RIGHT TECHNIQUE: Ultrasound right breast focused area of concern. CLINICAL INFORMATION: ABNORMAL MAMMO FINDINGS: Ultrasound inferior quadrant RIGHT breast along the posterior nipple line. No suspicious cystic or so lid lesions to target for biopsy. Incidental simple cyst at the 3:00 position 1 cm from the nipple me asuring 1.2 x 0.7 x 1.0 cm. Chronic area of architectural distortion 8:00 position 2 cm from the nipple stable over multiple prio r mammograms. MM/[id number] IMPRESSION: BI-RADS: 2-Benign FOLLOW UP: 1 Year Follow-up Recommend return to annual screening mammography.
== END 2023-04-11 14:09 | disposition home or self-care (01) ==
PROVIDERS: PCP Internal Medicine; Visit Provider Nurse Practitioner Family
DX: R92.8 Other abnormal and inconclusive findings on diagnostic imaging of breast (principal)
CPT/HCPCS: 76642; 77062; G0279

== ENCOUNTER 2023-05-20 13:20 | Outpatient (CLI) | payer MEDICARE, MEDICAID, SELFPAY ==
--- NOTE | 2023-05-20 13:35 | US_ITS ---
WS: [id number] THYROID ULTRASOUND HISTORY: HYPOTHYROIDISM COMPARISON: None available. Right lobe: 1.3 cm x 1.8 cm x 4.3 cm (w x ap x l). Volume: 5.3 cm3. Normal sized gland. Very mild heterogeneity in the lower pole. No definite nodule is identified. Ther e is no increased vascularity. Single RIGHT cervical chain lymph node. Normal fatty hilum but the cor pau is mildly asymmetric. Mild thickening of a portion of the cortex. Left lobe: LEFT thyroidectomy. No thyroid tissue at the thyroid bed. Small cervical chain lymph nodes. Largest lymph node measures 0 .7 x 0.7 x 1.2 cm. Mild asymmetry displacement of the hilum. Isthmus: 0.2 cm. IMPRESSION: 1. LEFT thyroidectomy. No recurrent thyroid or residual thyroid tissue. 2. Bilateral cervical chain lymph nodes. No size. Mild asymmetry of the cortex and fatty jarrett along t he cervical chain lymph nodes. These lymph nodes are normal size. If further evaluation is clinically thought necessary of these lymph nodes neck CT with IV contrast can be obtained. The asymmetry may b e reactive.
== END 2023-05-20 13:21 | disposition home or self-care (01) ==
PROVIDERS: PCP Internal Medicine; Visit Provider Internal Medicine
DX: E03.9 Hypothyroidism, unspecified (principal)
CPT/HCPCS: 76536

== ENCOUNTER 2023-06-02 23:12 | Emergency (ER) | payer MEDICARE, MEDICAID, SELFPAY ==
[2023-06-02 23:28] VITALS: BP 136/88; PULSE 71; RESP 16; TEMP 36.6; O2SAT 97; BMI 27.1
[2023-06-03 01:38] LABS: Basophils # 0.1 10^3/uL (0.0-0.1); Basophils % 0.5 %; Eosinophils # 0.2 10^3/uL (0.0-0.8); Eosinophils % 1.5 %; Hematocrit 44.2 % (36-47); Lymphocytes # 2.2 10^3/uL (0.8-4.8); Lymphocytes % 20.4 %; Mean Corpuscular HGB Conc 30.5 g/dL (30-55); Mean Corpuscular Hemoglobin 30.9 pg (27-33); Mean Corpuscular Volume 101.1 fl (85-98); Mean Platelet Volume 10.1 fL (7.4-10.4); Monocytes # 0.7 10^3/uL (0.2-0.9); Monocytes % 6.4 %; Neutrophils # 7.53 10^3/uL (1.8-7.7); Neutrophils % 70.6 %; Nucleated Red Blood Cells % 0 %; Platelet Count 264 10^3/cmm (157-399); Red Blood Count 4.37 10^6/uL (3.85-5.65); Red Cell Distribution Width 12.5 % (12.1-15.1); White Blood Count 10.65 10^3/uL (3.29-11.43)
[2023-06-03 02:06] LABS: Alanine Aminotransferase 11 U/L (0-33); Albumin Level 4.7 g/dL (3.5-5.2); Alkaline Phosphatase 92 U/L (35-105); Aspartate Amino Transferase 14 U/L (0-32); Blood Urea Nitrogen 15 mg/dL (8-23); Calcium 10.3 mg/dL (8.5-10.5); Carbon Dioxide 27 mmol/L (22-29); Chloride 102 mmol/L (98-107); Globulin 2.7 g/dL (1.3-4.6); Glucose 124 mg/dL (65-115); Osmolality Calculated 294 mOsm/kg (285-295); Sodium 141 mmol/L (136-145); Thyroid Stimulating Hormone 0.93 uIU/mL (0.27-4.20); Total Bilirubin 0.3 mg/dL (0.15-1.2); Total Protein 7.4 g/dL (6.6-8.7)
[2023-06-03 02:13] LABS: Acetaminophen < 5.0 ug/mL (10-30); Alcohol Level < 10 mg/dL (0-10); Salicylate < 0.3 mg/dL (3-10)
[2023-06-03 02:33] LABS: Add Urine Microscopic? YES; Bilirubin Urine Neg (Negative); Blood Urine Trace (Negative); Glucose Urine UA Norm (Normal); Ketones Urine Negative (Negative); Leukocyte Esterase Urine 1+ (Negative); Nitrate Urine Negative (Negative); Protein Urine Neg (Negative); RBC Urine 0-4 /hpf (0-2); Specific Gravity, Urine 1.015 (1.005-1.030); Urine Appearance SL Hazy (CLEAR); Urine Color Colorless (Yellow); Urobilinogen Urine Neg (Negative); pH Urine 5 (5-7)
[2023-06-03 02:34] LABS: Add Urine Culture? Yes; Bacteria Urine TRACE /hpf; Squamous Epithelial Cell Urine 0-4 /hpf (0-5); WBC Urine 15-25 /hpf (0-5)
[2023-06-03 02:36] LABS: Amphetamines Screen Urine Negative (Negative); Barbiturates Screen Urine Negative (Negative); Benzodiazepines Screen Urine Negative (Negative); Cocaine Screen Urine Negative (Negative); Opiate Screen Urine Negative (Negative); PCP Screen Urine Negative (Negative); THC Screen Urine Negative (Negative)
--- NOTE | 2023-06-03 02:37 | W.ED.PSYCHS ---
HPI - Psych General: Chief Complaint: Psychiatric Symptoms Stated Complaint: throat pain Time Seen by Provider: 06/03/23 00:23 History of Present Illness: Patient presents to the ER complaining of her thyroid medicine. She says a change her medicine several months ago and she can feel her goiter growing her hair falling out and that she is gaining weight. Patient denies any active suicidal or homicidal ideations. Review of Systems General: Reports: 10 or more systems reviewed and unremarkable except in HPI and below PFSH ED PFSH: Medical History Diabetes mellitus High cholesterol History of skull fracture Hypertension Hypothyroid Surgical History History of hysterectomy S/P cholecystectomy Status post removal of thyroid nodule Family History Other Dementia Denies family history of Cancer Social History Smoking and tobacco status: never smoked Alcohol intake: never Household members: other Details: parents Current occupational status: unemployed Physical Exam Const: COMMON NORMALS: no acute distress, average body habitus, patient oriented x3, no limitations, healthy appearing, alert and well nourished HENMT: COMMON NORMALS: normocephalic, atraumatic, hearing grossly normal bilaterally, external ears normal, Normal external nose present and moist oral mucous membranes HEAD & SCALP: normocephalic and atraumatic NOSE: Normal external nose present EXTERNAL EAR: Yes external ears normal Eye: COMMON NORMALS: Equal, round and reactive pupils present, EOMs intact bilaterally, conjunctivae normal and no scleral icterus CONJUNCTIVA: Yes conjunctivae normal PUPIL: Yes Equal, round and reactive pupils present Neck/C-Spine: COMMON NORMALS: no JVD Resp: COMMON NORMALS: normal respiratory effort, No retractions, No use of accessory muscles and clear to auscultation bilaterally AUSCULTATION: clear to auscultation bilaterally Cardio: COMMON NORMALS: no JVD, regular rate, regular rhythm, S1 normal heart sound present, S2 normal heart sound present, No gallops present (Cardio), No clicks present (Cardio), No murmurs present (Cardio) and No rub (Cardio) RATE: regular rate RHYTHM: regular rhythm HEART SOUNDS: S1 normal heart sound present and S2 normal heart sound present GI: COMMON NORMALS: Normal to inspection, nondistended, normoactive bowel sounds present, Soft to palpation, non-tender, No hepatosplenomegaly present and no masses PALPATION: Yes Soft to palpation and Yes No hepatosplenomegaly present Neuro: COMMON NORMALS: patient oriented x3 SENSORIUM/ORIENTATION: Yes alert Course Vital Signs: Vital signs: Vital Signs Temperature 97.9 F 06/02/23 23:28 Pulse Rate 71 06/02/23 23:28 Respiratory Rate 16 06/02/23 23:28 Blood Pressure 136/88 06/02/23 23:28 Pulse Oximetry 97 06/02/23 23:28 Oxygen Delivery Me thod Room Air 06/02/23 23:28 MDM - Psych Medical Decision Making Patient presents to the ER with complaints of medicine and generic symptoms. Lab work was obtained which was essentially negative other than a urinary tract infection. Patient was informed of these and would be placed her on antibiotics and we will discharge her to follow-up with her PCP. Differential Diagnosis Unlikely acute psychosis, chronic schizophrenia, suicidal ideation, bipolar disorder, depression, drug-induced psychotic disorder or acute anxiety Medical Records I reviewed the patient's medical records. Lab Data I reviewed the patient's lab results. 06/03/23 01:30 06/03/23 01:30 Laboratory Results WBC 10.65 10^3/uL (3.29-11.43) 06/03/23 01:30 RBC 4.37 10^6/uL (3.85-5.65) 06/03/23 01:30 Hgb 13.50 g/dL (11.27-16.99) 06/03/23 01:30 Hct 44.2 % (36-47) 06/03/23 01:30 MCV 101.1 fl (85-98) H 06/03/23 01:30 MCH 30.9 pg (27-33) 06/03/23 01:30 MCHC 30.5 g/dL (30-55) 06/03/23 01:30 RDW 12.5 % (12.1-15.1) 06/03/23 01:30 Plt Count 264 10^3/cmm (157-399) 06/03/23 01:30 MPV 10.1 fL (7.4-10.4) 06/03/23 01:30 Neut % (Auto) 70.6 % 06/03/23 01:30 Lymph % (Auto) 20.4 % 06/03/23 01:30 [place] % (Auto) 6.4 % 06/03/23 01:30 Eos % (Auto) 1.5 % 06/03/23 01:30 Baso % (Auto) 0.5 % 06/03/23 01:30 Neut # (Auto) 7.53 10^3/uL (1.8-7.7) 06/03/23 01:30 Lymph # (Auto) 2.2 10^3/uL (0.8-4.8) 06/03/23 01:30 [place] # (Auto) 0.7 10^3/uL (0.2-0.9) 06/03/23 01:30 Eos # (Auto) 0.2 10^3/uL (0.0-0.8) 06/03/23 01:30 Baso # (Auto) 0.1 10^3/uL (0.0-0.1) 06/03/23 01:30 Nucleated RBC % (auto) 0 % 06/03/23 01:30 Nucleated RBCs # 0.0 /100WBC 06/03/23 01:30 Sodium 141 mmol/L (136-145) 06/03/23 01:30 Potassium 4.0 mmol/L (3.5-5.1) 06/03/23 01:30 Chloride 102 mmol/L (98-107) 06/03/23 01:30 Carbon Dioxide 27 mmol/L (22-29) 06/03/23 01:30 Anion Gap 16.0 (5-19) 06/03/23 01:30 BUN 15 mg/dL (8-23) 06/03/23 01:30 Creatinine 0.9 mg/dL (0.5-0.9) 06/03/23 01:30 GFR Calculation 63.0 mL/min (90-130) L 06/03/23 01:30 Glucose 124 mg/dL (65-115) H 06/03/23 01:30 Calculated Osmolality 294 mOsm/kg (285-295) 06/03/23 01:30 Calcium 10.3 mg/dL (8.5-10.5) 06/03/23 01:30 Total Bilirubin 0.3 mg/dL (0.15-1.2) 06/03/23 01:30 AST 14 U/L (0-32) 06/03/23 01:30 ALT 11 U/L (0-33) 06/03/23 01:30 Alkaline Phosphatase 92 U/L (35-105) 06/03/23 01:30 Total Protein 7.4 g/dL (6.6-8.7) 06/03/23 01:30 Albumin 4.7 g/dL (3.5-5.2) 06/03/23 01:30 Globulin 2.7 g/dL (1.3-4.6) 06/03/23 01:30 TSH 0.93 uIU/mL (0.27-4.20) 06/03/23 01:30 Urine Color Colorless (Yellow) 06/03/23 02:18 Urine Appearance Sl hazy (CLEAR) A 06/03/23 02:18 Urine pH 5 (5-7) 06/03/23 02:18 Ur Specific [place] 1.015 (1.005-1.030) 06/03/23 02:18 Urine Protein Neg (Negative) 06/03/23 02:18 Urine Glucose (UA) Norm (Normal) 06/03/23 02:18 Urine Ketones Negative (Negative) 06/03/23 02:18 Urine Blood Trace (Negative) H 06/03/23 02:18 Urine Nitrate Negative (Negative) 06/03/23 02:18 Urine Bilirubin Neg (Negative) 06/03/23 02:18 Urine Urobilinogen Neg mg/dL (Negative) 06/03/23 02:18 Ur Leukocyte Esterase 1+ (Negative) H 06/03/23 02:18 Urine RBC 0-4 /hpf (0-2) H 06/03/23 02:18 Urine WBC 15-25 /hpf (0-5) H 06/03/23 02:18 Ur Squamous Epith Cells 0-4 /hpf (0-5) H 06/03/23 02:18 Amorphous Sediment Not Reportable 06/03/23 02:18 Urine Bacteria Trace /hpf (NONE) 06/03/23 02:18 Salicylates < 0.3 mg/dL (3-10) L 06/03/23 01:30 Urine Opiates Screen Negative ng/mL (Negative) 06/03/23 02:18 Acetaminophen < 5.0 ug/mL (10-30) L 06/03/23 01:30 Ur Barbiturates Screen Negative ng/mL (Negative) 06/03/23 02:18 Ur Phencyclidine Scrn Negative ng/mL (Negative) 06/03/23 02:18 Ur Amphetamines Screen Negative ng/mL (Negative) 06/03/23 02:18 U Benzodiazepines Scrn Negative ng/mL (Negative) 06/03/23 02:18 Urine Cocaine Screen Negative ng/mL (Negative) 06/03/23 02:18 U Marijuana (THC) Screen Negative ng/mL (Negative) 06/03/23 02:18 Ethyl Alcohol < 10 mg/dL (0-10) 06/03/23 01:30 No radiology studies performed this visit Discharge Plan Discharge Patient Disposition: Home Clinical Impression: Urinary tract infection Qualifiers: Urinary tract infection type: acute cystitis Hematuria presence: without hematuria Qualified Code(s): N30.00 - Acute cystitis without hematuria Condition: Stable Prescriptions: New ciprofloxacin HCl 500 mg tablet 500 mg PO BID Qty: 14 0RF No Action spironolactone 25 mg tablet 50 mg PO BID metformin 500 mg tablet 500 mg PO DAILY mupirocin 2 % ointment 1 applic topical BID Qty: 22 3RF atenolol 50 mg tablet 50 mg PO BID amitriptyline 50 mg tablet 50 mg PO BEDTIME levothyroxine 75 mcg tablet 75 mcg PO DAILY simvastatin 20 mg tablet 20 mg PO BEDTIME Vitamin C 500 mg Tablet Extended Release 500 mg PO DAILY Discharge Orders: Discharge ED (Routine); Ordered 06/03/23 Ordered By: Norman Alcazar Referrals: Rebecca Forrest MD [Primary Care Provider] - 1 week Patient Instructions: Urinary Tract Infection - Women Activity Restrictions/Additional Instructions: Please take all your medicine as directed, please follow-up with your family practice physician within the next week for further evaluation and treatment. 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
== END 2023-06-03 02:50 | disposition home or self-care (01) ==
PROVIDERS: Emergency Provider Emergency Medicine; PCP Internal Medicine
DX: N30.00 Acute cystitis without hematuria (principal); Z79.84 Long term (current) use of oral hypoglycemic drugs; E11.9 Type 2 diabetes mellitus without complications; I10 Essential (primary) hypertension
CPT/HCPCS: 36415; 80053; 80306; 80307; 81001; 84443; 85025; 87086; 99283

== ENCOUNTER → 2023-06-06 10:45 | Outpatient (BNVA) | payer MEDICARE, MEDICAID, SELFPAY | PROVIDERS: PCP Internal Medicine; Visit Provider Otolaryngology | DX: K11.7 Disturbances of salivary secretion (principal); E86.0 Dehydration; J35.8 Other chronic diseases of tonsils and adenoids | CPT/HCPCS: 99202; 99203 ==

== ENCOUNTER 2023-06-17 11:38 | Outpatient (CLI) | payer MEDICARE, MEDICAID, SELFPAY ==
--- NOTE | 2023-06-17 11:55 | CT_ITS ---
WS: [id number] CT NECK TECHNIQUE: Contrast-enhanced CT of the neck with coronal and sagittal reformatted images. CLINICAL INFORMATION: CHRONIC SORE THROAT COMPARISON: CT neck 11/23/2012 DLP: 274.[address] scans at [facility] use at least one of these dose optimization techniques: automated e xposure control; mA and/or kV adjustment per patient size (includes targeted exams where dose is matc hed to clinical indication); or iterative reconstruction. FINDINGS: Paranasal sinuses and mastoid air cells are well aerated. Normal posterior nasopharynx and parapharyn geal fat. Arachnoid cyst RIGHT middle cranial fossa measuring 3.6 x 1.7 cm. Evidence of prior LEFT thyroid lobe resection. No evidence of mass or lesion in the LEFT thyroid bed. Slightly heterogeneous and nodular RIGHT thyroid lobe. Normal submandibular glands. Normal parotid glands. No evidence of supraglottic or glottic mass. A few prominent upper cervical lymph nodes largest RIGHT measuring 11 mm unchanged since 2013. A few prominent level 4 posterior triangle lymph nodes on the LEFT also unchanged since 2013 measuring up t o 9 mm. Images degraded at the tongue base due to dental artifact. No other suspicious lymph nodes. IMPRESSION: 1. Prior postoperative changes resection of the LEFT thyroid lobe with surgical clips in the thyroid bed. No recurrent mass or lesion in the thyroid bed. 2. Slightly nodular and heterogeneous RIGHT thyroid lobe unchanged since the recent ultrasound. 3. A few prominent cervical lymph nodes described above unchanged since the CT in 2012 which is reas suring. 4. Incidental middle cranial fossa arachnoid cyst seen on the partially visualized intracranial imag ing measuring 3.6 x 1.[address] cm[address] No prior head CT imaging available.
[2023-06-17] MEDS: iohexol 350 mg/mL 500 mL Btl (per mL) IV (12:30)
== END 2023-06-17 11:39 | disposition home or self-care (01) ==
PROVIDERS: PCP Internal Medicine; Visit Provider Internal Medicine
DX: J02.9 Acute pharyngitis, unspecified (principal); E89.0 Postprocedural hypothyroidism
CPT/HCPCS: 70491; Q9967

== ENCOUNTER → 2023-07-01 09:36 | Outpatient (BNVA) | payer MEDICARE, MEDICAID, SELFPAY | PROVIDERS: PCP Internal Medicine; Visit Provider Nurse Practitioner Family | DX: B35.4 Tinea corporis (principal); D22.62 Melanocytic nevi of left upper limb, including shoulder | CPT/HCPCS: 99214 ==

== ENCOUNTER → 2023-07-15 08:36 | Outpatient (BNVA) | payer MEDICARE, MEDICAID, SELFPAY | PROVIDERS: PCP Internal Medicine; Visit Provider Podiatrist Foot & Ankle Surgery | DX: M79.671 Pain in right foot (principal); M79.672 Pain in left foot; M77.51 Other enthesopathy of right foot and ankle; E11.9 Type 2 diabetes mellitus without complications; Z79.84 Long term (current) use of oral hypoglycemic drugs | CPT/HCPCS: 73630; 99203 ==

== ENCOUNTER → 2023-07-25 11:15 | Outpatient (BNVA) | payer MEDICARE, MEDICAID, SELFPAY | PROVIDERS: PCP Internal Medicine; Visit Provider Nurse Practitioner | DX: R39.9 Unspecified symptoms and signs involving the genitourinary system (principal); R30.0 Dysuria | CPT/HCPCS: 81000; 87086 ==

== ENCOUNTER → 2023-08-02 15:07 | Outpatient (BNVA) | payer MEDICARE, MEDICAID, SELFPAY | PROVIDERS: PCP Family Medicine Adult Medicine; Visit Provider Nurse Practitioner Family | DX: B35.4 Tinea corporis (principal); D22.62 Melanocytic nevi of left upper limb, including shoulder; L70.0 Acne vulgaris | CPT/HCPCS: 99214 ==

== ENCOUNTER → 2023-08-18 10:45 | Outpatient (BNVA) | payer MEDICARE, MEDICAID, SELFPAY | PROVIDERS: PCP Family Medicine Adult Medicine; Visit Provider Podiatrist Foot & Ankle Surgery | DX: M79.671 Pain in right foot; M79.672 Pain in left foot; M77.51 Other enthesopathy of right foot and ankle; E11.9 Type 2 diabetes mellitus without complications; Z79.84 Long term (current) use of oral hypoglycemic drugs | CPT/HCPCS: 99213 ==

== ENCOUNTER → 2023-08-29 08:37 | Outpatient (BNVA) | payer MEDICARE, MEDICAID, SELFPAY | PROVIDERS: PCP Family Medicine Adult Medicine; Visit Provider Internal Medicine | DX: E03.9 Hypothyroidism, unspecified (principal); E26.9 Hyperaldosteronism, unspecified; E11.9 Type 2 diabetes mellitus without complications; M85.80 Other specified disorders of bone density and structure, unspecified site; E27.8 Other specified disorders of adrenal gland; E04.1 Nontoxic single thyroid nodule; Z76.89 Persons encountering health services in other specified circumstances; Z79.84 Long term (current) use of oral hypoglycemic drugs; Z79.890 Hormone replacement therapy | CPT/HCPCS: 99204 ==

== ENCOUNTER 2023-09-15 12:11 | Outpatient (CLI) | payer MEDICARE, MEDICAID, SELFPAY ==
--- NOTE | 2023-09-15 12:30 | CTR_ITS ---
PROCEDURE INFORMATION: Exam: CT Abdomen And Pelvis Without And With Contrast Exam date and time: 09/15/2023 12:48 PM Age: 63 years old Clinical indication: Condition or disease; Other: Adrenal nodules; Prior surgery; Surgery date: 6+ months; Surgery type: Hyst, gb.No history of trauma or recent surgery is provided. TECHNIQUE: Imaging protocol: Computed tomography of the abdomen and pelvis without and with contrast. 786image(s) are provided. Radiation optimization: All CT scans at this facility use at least one of these dose optimization techniques: automated exposure control; mA and/or kV adjustment per patient size (includes targeted exams where dose is matched to clinical indication); or iterative reconstruction. Contrast material: OMNI 350; Contrast volume: 95 ml; Contrast route: INTRAVENOUS (IV); Other technique: Axial images are available with sagittal and coronal reconstruction views. Automated dose exposure control is utilized. The DLP is 1174.94. REPORTING DATA: Count of CT and Cardiac NM exams in prior 12 months: This patient has received [address] and 0 known cardiac nuclear medicine studies in the 12 months prior to the current study. COMPARISON: 1. CT abdomen pelvis wo/w [id number] 03/24/2021 11:34 AM 2. US abdomen limited [id number] 05/16/2022 2:[address] abdomen wo/w con [id number] 10/31/2019 8:48 AM RADIATION DOSE METRICS: Total DLP (mGy-cm): 1174.94 FINDINGS: Lungs: No lobar consolidation is appreciated. There is some subsegmental atelectasis versus post inflammatory scarring demonstrated. There is some lung base granulomatous change similar overall. Heart: No significant pericardial fluid collection is appreciated. Diaphragm: There is slight asymmetric right hemidiaphragm elevation. There is some minimal anterior abdominal wall eventration with no bowel or fluid currently appreciated. Liver: There appears to be some slight hepatic steatosis along with some granulomatous calcific appearance. There is some hepatic sparing similar overall. Gallbladder and bile ducts: Cholecystectomy clips are present. Pancreas: No pancreatic ductal dilatation or calculus is currently appreciated. Spleen: Unremarkable. Adrenal glands: There is some adrenal hypertrophy similar overall. The previously described minuscule lobulation appears unchanged significantly overall indicative of stability. What was described as a adrenal adenoma of the lateral limb on the right appears unchanged significantly overall with greatest thickness of around 6 mm. With the small size, adrenal washout evaluation is limited. The focal area does appear to demonstrate washout relative value of around 60%. This corresponds to the clinical history provided. Kidneys and ureters: There is homogeneous renal parenchymal enhancement with no radiopaque obstructive calculus or hydronephrosis appreciated with similar appearance including cystic change. Stomach and bowel: Some aspects of the colon are undistended. This may also be peristaltic related.The bowel gas pattern appears nonobstructive.There is abundant stool present limiting mucosal detail evaluation. There is some ingested bowel content present. There is some mild chronic colonic diverticulosis demonstrated. Appendix: No evidence of appendicitis. Intraperitoneal space: No free air or free fluid collections are appreciated. Vasculature: No interval abdominal aortic saccular aneurysmal dilatation or intimal irregularity is appreciated. Lymph nodes: There are subcentimeter predominant para-aortic and mesenteric lymph nodes overall present. There are some reactive appearing pelvic lymph nodes similar overall. Urinary bladder: The bladder is incompletely fluid filled for evaluation which may exagerate the wall thickness. This can also be seen with post inflammation sequela. Reproductive: There are hysterectomy changes present. Bones/joints: Osseous alignment is maintained. No interval displaced fracture or dislocation is appreciated. There are chronic degenerative changes of the lumbar spine similar overall. Soft tissues: No radiopaque foreign body or subcutaneous emphysema is appreciated. Other findings: No other significant interval changes are appreciated. CT/CT abdomen pelvis wo/w [id number] IMPRESSION: 1. There is a stable interval appearance of the adrenal hypertrophy and slightly lobular overall configuration. No significant interval increase of nodularity is appreciated. 2. No interval fluid collections or acute inflammatory stranding changes are appreciated. 3. There is a small sliding-type hiatal hernia demonstrated with slight gastroesophageal fold thickening. There does appear to be some subtle lobular type appearance about the greater curvature level and could represent some localized irregular wall thickening or lesion. Consider endoscopy for further evaluation.
[2023-09-15 12:45] LABS: Blood Urea Nitrogen 17 mg/dL (8-23); Glomerular Filtration Rate 49.8 mL/min (90-130)
[2023-09-15] MEDS: iohexol 350 mg/mL 500 mL Btl (per mL) IV (12:55)
== END 2023-09-15 12:12 | disposition home or self-care (01) ==
LOC: RAD 12:11
PROVIDERS: PCP Family Medicine Adult Medicine; Visit Provider Internal Medicine
DX: E27.8 Other specified disorders of adrenal gland (principal); K44.9 Diaphragmatic hernia without obstruction or gangrene; K31.89 Other diseases of stomach and duodenum
CPT/HCPCS: 74178; 82565; 84520; Q9967

== ENCOUNTER → 2024-03-23 09:59 | Outpatient (BNVA) | payer MEDICARE, OTHER, SELFPAY | PROVIDERS: PCP Family Medicine Adult Medicine; Visit Provider Emergency Medicine | DX: R39.9 Unspecified symptoms and signs involving the genitourinary system (principal); N12 Tubulo-interstitial nephritis, not specified as acute or chronic | CPT/HCPCS: 81000; 87086 ==

== ENCOUNTER → 2024-05-23 12:44 | Outpatient (BNVA) | payer MEDICARE, OTHER, SELFPAY | PROVIDERS: PCP Family Medicine Adult Medicine; Visit Provider Registered Nurse Neonatal Intensive Care | DX: R39.9 Unspecified symptoms and signs involving the genitourinary system (principal) | CPT/HCPCS: 81000; 87086 ==

== ENCOUNTER → 2024-07-02 13:34 | Outpatient (BNVA) | payer MEDICARE, SELFPAY | PROVIDERS: PCP Family Medicine Adult Medicine; Visit Provider Registered Nurse Neonatal Intensive Care | DX: N39.0 Urinary tract infection, site not specified (principal); R39.9 Unspecified symptoms and signs involving the genitourinary system | CPT/HCPCS: 81000; 87086 ==

== ENCOUNTER → 2024-07-12 09:05 | Outpatient (BNVA) | payer MEDICARE, SELFPAY | PROVIDERS: PCP Family Medicine Adult Medicine | DX: R39.9 Unspecified symptoms and signs involving the genitourinary system (principal) | CPT/HCPCS: 81000; 87086 ==

== ENCOUNTER → 2024-11-09 14:33 | Outpatient (BNVA) | payer MEDICARE, SELFPAY | PROVIDERS: PCP Family Medicine Adult Medicine; Visit Provider Family Medicine | DX: I15.0 Renovascular hypertension (principal); E78.00 Pure hypercholesterolemia, unspecified; E11.620 Type 2 diabetes mellitus with diabetic dermatitis; E03.9 Hypothyroidism, unspecified; N18.2 Chronic kidney disease, stage 2 (mild) | CPT/HCPCS: 80053; 80061; 82607; 83036; 84439; 84443; 85025 ==

== ENCOUNTER → 2024-11-12 12:56 | Outpatient (BNVA) | payer MEDICARE, SELFPAY | PROVIDERS: PCP Family Medicine; Visit Provider Family Medicine | DX: N39.0 Urinary tract infection, site not specified (principal); I15.0 Renovascular hypertension; E78.00 Pure hypercholesterolemia, unspecified; E11.620 Type 2 diabetes mellitus with diabetic dermatitis; E03.9 Hypothyroidism, unspecified; N18.2 Chronic kidney disease, stage 2 (mild) | CPT/HCPCS: 82043; 87086 ==

== ENCOUNTER → 2024-11-19 08:31 | Outpatient (BNVA) | payer MEDICARE, SELFPAY | PROVIDERS: PCP Family Medicine; Visit Provider Internal Medicine Cardiovascular Disease | DX: R00.2 Palpitations (principal); I49.3 Ventricular premature depolarization; I49.1 Atrial premature depolarization; I47.19 Other supraventricular tachycardia; I47.29 Other ventricular tachycardia | CPT/HCPCS: 93242 ==

== ENCOUNTER → 2024-12-10 15:02 | Outpatient (BNVA) | payer MEDICARE, SELFPAY | PROVIDERS: PCP Family Medicine; Visit Provider Family Medicine | DX: J12.9 Viral pneumonia, unspecified (principal); J18.9 Pneumonia, unspecified organism; R06.02 Shortness of breath; J98.11 Atelectasis | CPT/HCPCS: 71046; 80048; 83880; 85025; 87400; 87426 ==

== ENCOUNTER → 2025-05-07 14:47 | Outpatient (BNVA) | payer MEDICARE, SELFPAY | PROVIDERS: PCP Family Medicine; Visit Provider Family Medicine | DX: E11.620 Type 2 diabetes mellitus with diabetic dermatitis (principal); I15.0 Renovascular hypertension; E26.9 Hyperaldosteronism, unspecified; N18.2 Chronic kidney disease, stage 2 (mild); N39.0 Urinary tract infection, site not specified | CPT/HCPCS: 80048; 83036; 87086 ==

== ENCOUNTER → 2025-08-06 13:51 | Outpatient (BNVA) | payer MEDICARE, SELFPAY | PROVIDERS: PCP Family Medicine; Visit Provider Family Medicine | DX: Z11.59 Encounter for screening for other viral diseases (principal); E11.9 Type 2 diabetes mellitus without complications; J12.9 Viral pneumonia, unspecified; N18.2 Chronic kidney disease, stage 2 (mild); E26.9 Hyperaldosteronism, unspecified; R30.0 Dysuria | CPT/HCPCS: 80048; 83036; 86803; 87086 ==

== ENCOUNTER 2025-08-12 15:04 | Outpatient (CLI) | payer MEDICARE, SELFPAY ==
--- NOTE | 2025-08-12 15:20 | MM_ITS ---
WS: [id number] BILATERAL 3D TOMOSYNTHESIS DIGITAL SCREENING MAMMOGRAPHY WITH CAD CLINICAL INFORMATION: screening HISTORY: Screening mammogram. No current complaints. COMPARISON: 2022 TECHNIQUE: Bilateral CC and MLO views. FINDINGS: The breasts are composed of heterogeneous fibroglandular density tissue, which can limit the detection of small underlying mass lesions. No suspicious mass, asymmetry, calcifications, or architectural distortion. No evidence of malignancy. Biopsy clip RIGHT breast. Incidental punctate and lucent centered calcifications. Vascular calcification. Stable area of architectural distortion RIGHT breast previously evaluated MM/MM [facility] tomosynthesis [id number] IMPRESSION: DENSITY: The breasts are heterogeneously dense, which may obscure small masses. BI-RADS: 2 - Benign FOLLOW UP: 1 Year Follow-up Recommend return to annual screening mammography.
== END 2025-08-12 15:05 | disposition home or self-care (01) ==
LOC: RAD 15:05
PROVIDERS: PCP Family Medicine; Visit Provider Family Medicine
DX: Z12.31 Encounter for screening mammogram for malignant neoplasm of breast (principal); R92.333 Mammographic heterogeneous density, bilateral breasts; R92.323 Mammographic fibroglandular density, bilateral breasts; R92.1 Mammographic calcification found on diagnostic imaging of breast; Z96.89 Presence of other specified functional implants
CPT/HCPCS: 77063; 77067

== ENCOUNTER → 2025-08-28 11:28 | Outpatient (BNVA) | payer MEDICARE, SELFPAY | PROVIDERS: PCP Family Medicine; Visit Provider Surgery | DX: Z12.11 Encounter for screening for malignant neoplasm of colon (principal) | CPT/HCPCS: 99024; 99204 ==